=== PATIENT | female | born 1960 | race Caucasian/White ===

== ENCOUNTER → 2017-07-03 | Outpatient (CLI) | payer OTHER ==
[~2017-07-03] MED LIST: CIPR-255 PO; IPRA1AER2 INH; LORA10TA51 PO; LOSA50TA6 PO; NRN400 PO; OXYM0.0592 NAE; PANT1TAB3 PO; PRM/3 PO; SNG10 PO
[2017-07-03 16:57] LABS: BLOOD UREA NITROGEN 7 mg/dl (7-18); CALCIUM 9.2 mg/dl (8.5-10.1); CARBON DIOXIDE 30 mmol/L (21-32); CREATININE 0.82 mg/dl (0.60-1.20); GLUCOSE 92 mg/dl (70-99); POTASSIUM 4.1 mmol/L (3.5-5.1); SODIUM 140 mmol/L (136-145)
== END | disposition home or self-care (01) ==
LOC: C.LABPBG 12:57
PROVIDERS: ATTEND Physician Assistant
DX: I10 Essential (primary) hypertension (principal); R60.9 Edema, unspecified

== ENCOUNTER 2019-05-20 22:05 | Inpatient (IN) ==
[2019-05-20 22:46] LABS: Basophils # (auto) 0.02 K/uL (0-0.2); Basophils % (auto) 0.3 %; Eosinophils # (auto) 0.16 K/uL (0-0.5); Hematocrit (blood only) 44.3 % (37-47); Hemoglobin 15.5 g/dL (12.0-16.0); Immature Granulocytes # (auto) 0.01 K/uL (0.00-0.02); Immature Granulocytes % (auto) 0.1 %; Lymphocytes # (auto) 2.84 K/uL (1.2-3.4); Lymphocytes % (auto) 36.2 %; Mean Corpuscular Hemoglobin 32.7 pg (25-34); Mean Corpuscular Volume 93.5 fL (80-100); Mean Platelet Volume 10.4 fL (7.4-10.4); Monocytes # (auto) 0.81 K/uL (0.11-0.59); Monocytes % (auto) 10.3 %; Neutrophils # (auto) 4.01 K/uL (1.4-6.5); Neutrophils % (auto) 51.1 %; Platelet Count 278 K/uL (130-400); RDW Coefficient of Variation 13.4 % (11.5-14.5); RDW Standard Deviation 45.9 fL (36.4-46.3); Red Blood Count 4.74 M/uL (4.2-5.4); White Blood Count 7.85 K/uL (4.8-10.8)
--- NOTE | 2019-05-20 22:50 | CT Scan Report ---
HEAD CT NONCONTRAST CT DOSE: HISTORY: Stroke evaluation TECHNIQUE: Multiaxial CT images of the head were performed without the use of intravenous contrast. A utomated exposure control was utilized for this study. A dose lowering technique was utilized adheri ng to the principles of ALARA. Comparison: Head CTA 07/24/2018. Findings: The paranasal sinuses are clear. The right mastoid air cells are clear. Complete opacificat ion of the left mastoid air cells, unchanged. Prior left-sided craniotomy changes are noted with smal l focus of encephalomalacia within the left temporal lobe. No calvarial fractures. There is no mass, hematoma, midline shift. The ventricles are normal in size. A few small focal areas of encephalomalac ia within the right frontal and parietal lobes consistent with old infarcts. Small peripheral hypoden sity within the right posterior parietal lobe on image 18 consistent with an age-indeterminate infarc t. Impression: 1. Small focal peripheral hypodensity within the right posterior frontal lobe consistent with an age- indeterminate infarct. This could be further assessed with a follow-up brain MRI. 2. Postoperative changes and a few small old scattered infarcts are identified. ACT 112: Negative or not required by law. Electronically signed by: Micheal Lux M.D. 05/20/2019 10:49 PM
[2019-05-20 22:53] LABS: Partial Thromboplastin Time 27.2 Seconds (21.0-31.0); Prothrombin Time 10.2 Seconds (9.0-12.0)
[2019-05-20] MEDS ORDERED: CLOPIDOGREL BISULFATE 300 MG TAB PO STA (22:54)
--- NOTE | 2019-05-20 23:05 | CT Scan Report ---
HEAD & NECK CTA HISTORY: Stroke symptoms. Stroke evaluation TECHNIQUE: Multiaxial CT images of the head were performed following the intravenous administration o f contrast to evaluate the major cerebral vessels. Multiaxial CT images of the neck were also perform ed following the intravenous administration of contrast to evaluate the major cervical vessels. Maxim um intensity projection images were also obtained. A dose lowering technique was utilized adhering to the principles of ALARA. COMPARISON: Head CTA 07/24/2018. FINDINGS: Postoperative changes consistent with prior left sided craniotomy. Diminished perfusion and a small c aliber intracranial right internal carotid artery demonstrate up to 50% narrowing. Hypoplastic bilate ral P1 segments which are likely developmental and considered normal variants. No significant stenosi s, occlusion, or aneurysm within the bilateral ACAs, MCAs, or vocational school teacher. The basilar artery appears patent . The left internal carotid artery is also widely patent. The major dural venous sinuses are patent. Chronic left mastoid effusion is again noted. Focal erosion through the epitympanic roof measuring 1 cm. This also unchanged. The aortic arch and proximal great vessels are widely patent. Severely hypoplastic right vertebral artery which appears to terminate into the posterior inferior cerebellar artery. The bilateral common carotid and left internal carotid arteries are widely patent. Critical stenosis versus focal cut off at the origin of the right internal carotid artery. There is faint perfusion and approximately 80% s tenosis throughout the remaining right internal carotid artery. Therefore, this raises the possibilit y of a dissection within the right internal carotid artery. Multiple solid and groundglass nodules wi thin the lungs. Dominant nodules measure up to 3 mm. IMPRESSION: 1. Critical stenosis versus focal cut off at the origin of the right internal carotid artery. There i s faint perfusion and approximately 80% stenosis throughout the remaining right internal carotid jj ry. Therefore, this raises the possibility of a dissection within the right internal carotid artery. 2. No significant stenosis, occlusion, or aneurysm within the bilateral ACAs, MCAs, or vocational school teacher. 3. No change in the chronic left mastoid effusion. Focal erosion through the epitympanic roof measuri ng 1 suggesting the possibility of a cholesteatoma. This also unchanged and may account for the left- sided postcraniotomy changes. 4. Multiple solid and groundglass nodules within the lungs. This favors mild inflammatory/infectious change. Comparison to old studies or follow-up nonemergent chest CT is recommended for further evalua tion. The largest nodules measure 3 mm. ACT 112: Negative or not required by law. Electronically signed by: Micheal Lux M.D. 05/20/2019 11:03 PM
--- NOTE | 2019-05-20 23:11 | Emergency Department Note ---
History of Present Illness General Chief complaint: TIA Symptoms Stated complaint: @1955 SPEECH SLURRED, FACE NUMBNESS, LT ARM NUMB Time Seen by Provider: 05/20/19 22:17 Source: patient and family Mode of arrival: EMS History of Present Illness Provider complaint: Left-sided weakness Onset (ago): day(s) 3 Location: upper extremity and lower extremity Severity: severe Pain Consistency: + intermittent Quality: + other (Weakness) Associated symptoms: no chest pain, no cough, no fever/chills, no headaches, no nausea/vomiting and no shortness of breath This is a 58-year-old female with history of hypertension presenting with left- sided weakness and numbness. I did obtain history from the patient as well as her daughter over the telephone. Apparently 3 days ago the patient developed an episode of left arm weakness and numbness. It lasted a short time and resolved but since then she has had trouble with coordination of the left arm. Today at 1955 the patient suddenly developed expressive aphasia as well as numbness to her face and left arm. She also had weakness to the left arm and leg. This lasted about 5 minutes then went away. About an hour later she had similar symptoms and they did not resolve. She currently can speak normally. She denies any headache or head injury. She has had no fever, vomiting, cough or flulike symptoms. She has had no travel or recent sick contacts. She has never had a stroke before. She does state in the 1980s she had a brain tumor which was not cancer and it was removed at [facility]. Home Medications Home Medications Medication Instructions Recorded Confirmed Type albuterol sulfate 2.5 mg INHALATION .Q4-6HRS PRN 07/24/18 05/20/19 History albuterol sulfate [Ventolin HFA] 1 - 2 puff INHALATION .Q4-6HRS PRN 07/24/18 05/20/19 History ondansetron 4 mg disintegrating 4 mg TRANSLINGUAL TID PRN #15 tab 12/30/18 05/20/19 Rx tablet cetirizine 10 mg tablet 10 mg PO DAILY #30 tab 02/05/19 05/20/19 Rx hydrochlorothiazide 12.5 mg tablet 12.5 mg PO QAM #30 tab 02/05/19 05/20/19 Rx losartan 100 mg tablet 100 mg PO DAILY #30 tab 02/05/19 05/20/19 Rx pantoprazole 40 mg tablet,delayed 40 mg PO QAM #30 tab 02/05/19 05/20/19 Rx release Allergies Allergy/AdvReac Type Severity Reaction Status Date / Time Penicillins Allergy Intermediate HIVES--CAN Verified 05/20/19 23:56 TAKE CEPHALOSPORINS propoxyphene Allergy Intermediate HIVES Verified 05/20/19 23:57 Past Med/Surg History Medical History (Updated 05/21/19 @ 00:31 by Sunny Andrade MD) Brain tumor (benign) (Resolved) Hypertension Surgical History H/O craniotomy (Resolved) Social History Preferred Language: [place] Feels Safe at Home: Yes Smoking Status: Current every day smoker Review of Systems See HPI for pertinent positives & negatives. and A total of 10 systems reviewed and were otherwise negative Physical Exam Vital Signs Vital Signs - 24 hr 05/20/19 22:06 05/20/19 22:18 05/20/19 22:27 Temperature 36.8 C Temperature Source Oral Pulse Rate 111 H 112 H Pulse Rate [Right Finger] Pulse Rate from SpO2 Sensor 112 H Respiratory Rate 16 18 20 Respiratory Effort / Characteristics Non-Labored Spontaneous Respiratory Depth Normal Respiratory Pattern Regular Blood Pressure 183/81 H 199/89 H Blood Pressure [Right Arm] Blood Pressure Mean 115 135 Blood Pressure Mean [Right Arm] Blood Pressure Position Sitting Blood Pressure Position [Right Arm] Pulse Oximetry 97 96 97 Oxygen Delivery Method Room Air Room Air Room Air Sepsis Recent Fever Within 48 Hours No Sepsis Action Taken by Nursing No Action Required 05/20/19 22:47 05/20/19 23:06 05/20/19 23:26 Temperature Temperature Source Pulse Rate 96 H 94 H Pulse Rate [Right Finger] 99 H Pulse Rate from SpO2 Sensor 95 H Respiratory Rate 22 16 17 Respiratory Effort / Characteristics Non-Labored Spontaneous Respiratory Depth Normal Respiratory Pattern Regular Blood Pressure 179/81 H 170/87 H Blood Pressure [Right Arm] 160/100 H Blood Pressure Mean 139 112 Blood Pressure Mean [Right Arm] 120 Blood Pressure Position Blood Pressure Position [Right Arm] Lying Pulse Oximetry 98 98 97 Oxygen Delivery Method Room Air Sepsis Recent Fever Within 48 Hours Sepsis Action Taken by Nursing 05/20/19 23:30 05/21/19 00:00 05/21/19 00:30 Temperature Temperature Source Pulse Rate 93 H 94 H 88 Pulse Rate [Right Finger] Pulse Rate from SpO2 Sensor 94 H 93 H 88 Respiratory Rate 21 16 19 Respiratory Effort / Characteristics Respiratory Depth Respiratory Pattern Blood Pressure 156/84 H 138/70 132/83 Blood Pressure [Right Arm] Blood Pressure Mean 111 108 108 Blood Pressure Mean [Right Arm] Blood Pressure Position Blood Pressure Position [Right Arm] Pulse Oximetry 96 95 96 Oxygen Delivery Method Sepsis Recent Fever Within 48 Hours Sepsis Action Taken by Nursing Constitutional: Vital signs reviewed. Eyes: Pupils are equal round reactive to light. Conjunctiva are noninjected. ENT: Pharynx is clear without erythema or exudate. Mucous membranes are moist. Neck supple without meningeal signs. Respiratory: Clear to auscultation bilaterally. Breath sounds are equal bilaterally. Cardiovascular: Regular rate and rhythm. No rubs or gallops. GI: Soft, nondistended and nontender. Bowel sounds are present. Musculoskeletal: No peripheral edema. No lower extremity tenderness. Integumentary: No cyanosis. or jaundice. Neurologic: The patient is awake and alert. Cranial nerves II-XII are intact. Strength is 2 out of 5 in the left lower extremity and 3 out of 5 in the left upper extremity. 5 out of 5 on the right side. Sensation is intact to light touch all extremities. Normal speech. Left pronator drift. Psychiatric: Normal affect. Not anxious appearing. Course Consultations Consultation #1: Dr. Keenan of [place] [facility]. Reviewed CT and CT angios findings with her. She felt the patient could be admitted locally for MRI in the morning as well as carotid duplex. Recommended treatment with Plavix and aspirin. Did not recommend IV heparin or emergent transfer. Administered Medications Discontinued Medications Aspirin (Aspirin) 324 mg PO NOW STA Stop: 05/20/19 23:19 Last Admin: 05/20/19 23:27 Dose: 324 mg Documented by: [id number] Clopidogrel Bisulfate (Plavix) 300 mg PO NOW STA Stop: 05/20/19 22:55 Last Admin: 05/20/19 23:04 Dose: 300 mg Documented by: [id number] Critical Care Time Total Critical Care Time: 40 I have personally spent approximately 40 minutes of critical care time in the direct management of this patient. This includes bedside care, interpretation of diagnostic studies, and testing, discussion with consultants, patient, and family members, and other required patient management activities. These minutes are in excess of all separately billable procedures. Medical Decision Making Differential Diagnosis CVA, TIA, carotid artery disease, intracranial mass, intracranial hemorrhage Medical Records Attestation: I reviewed the patient's medical records. I did perform a limited focused review of portions of the patient's old chart on the electronic medical record. The patient has had no recent pertinent visits to this hospital. I did see her for headache in July of last year. Home Medications Current Medication List: was personally reviewed by me Laboratory Data Attestation: I reviewed the patient's lab results. Result diagrams: 05/20/19 22:32 05/20/19 22:32 Lab Results 05/20/19 05/20/19 05/20/19 Range/Units 22:23 22:32 22:32 WBC 7.85 (4.8-10.8) K/uL RBC 4.74 (4.2-5.4) M/uL Hgb 15.5 (12.0-16.0) g/dL Hct 44.3 (37-47) % MCV 93.5 (80-100) fL MCH 32.7 (25-34) pg MCHC 35.0 (32-36) g/dL RDW Std Deviation 45.9 (36.4-46.3) fL RDW Coeff of Tori 13.4 (11.5-14.5) % Plt Count 278 (130-400) K/uL MPV 10.4 (7.4-10.4) fL Immature Gran % (Auto) 0.1 % Neut % (Auto) 51.1 % Lymph % (Auto) 36.2 % Cuming % (Auto) 10.3 % Eos % (Auto) 2.0 % Baso % (Auto) 0.3 % Immature Gran # (Auto) 0.01 (0.00-0.02) K/uL Neut # (Auto) 4.01 (1.4-6.5) K/uL Lymph # (Auto) 2.84 (1.2-3.4) K/uL Cuming # (Auto) 0.81 H (0.11-0.59) K/uL Eos # (Auto) 0.16 (0-0.5) K/uL Baso # (Auto) 0.02 (0-0.2) K/uL PT 10.2 (9.0-12.0) Seconds INR 1.0 (0.9-1.1) APTT 27.2 (21.0-31.0) Seconds PTT Ratio 1.0 Sodium (136-145) mmol/L Potassium (3.5-5.1) mmol/L Chloride (98-107) mmol/L Carbon Dioxide (21-32) mmol/L Anion Gap (3-11) BUN (7-18) mg/dl Creatinine (0.6-1.2) mg/dl Est Cr Clr Drug Dosing ml/min Est GFR ( Amer) Est GFR (Non-Af Amer) BUN/Creatinine Ratio (10-20) Glucose (70-99) mg/dl POC Glucose 119 H (70-99) mg/dl Calcium (8.5-10.1) mg/dl Magnesium (1.8-2.4) mg/dl Total Bilirubin (0.2-1) mg/dl AST (15-37) U/L ALT (12-78) U/L Alkaline Phosphatase (45-117) U/L Troponin I (0-0.045) ng/ml Total Protein (6.4-8.2) gm/dl Albumin (3.4-5.0) gm/dl Globulin (2.5-4.0) gm/dl Albumin/Globulin Ratio (0.9-2) Blood Type Antibody Screen 05/20/19 05/20/19 Range/Units 22:32 22:52 WBC (4.8-10.8) K/uL RBC (4.2-5.4) M/uL Hgb (12.0-16.0) g/dL Hct (37-47) % MCV (80-100) fL MCH (25-34) pg MCHC (32-36) g/dL RDW Std Deviation (36.4-46.3) fL RDW Coeff of Tori (11.5-14.5) % Plt Count (130-400) K/uL MPV (7.4-10.4) fL Immature Gran % (Auto) % Neut % (Auto) % Lymph % (Auto) % Cuming % (Auto) % Eos % (Auto) % Baso % (Auto) % Immature Gran # (Auto) (0.00-0.02) K/uL Neut # (Auto) (1.4-6.5) K/uL Lymph # (Auto) (1.2-3.4) K/uL Cuming # (Auto) (0.11-0.59) K/uL Eos # (Auto) (0-0.5) K/uL Baso # (Auto) (0-0.2) K/uL PT (9.0-12.0) Seconds INR (0.9-1.1) APTT (21.0-31.0) Seconds PTT Ratio Sodium 136 (136-145) mmol/L Potassium 3.5 (3.5-5.1) mmol/L Chloride 107 (98-107) mmol/L Carbon Dioxide 27 (21-32) mmol/L Anion Gap 2.0 L (3-11) BUN 12 (7-18) mg/dl Creatinine 0.82 (0.6-1.2) mg/dl Est Cr Clr Drug Dosing 69.1 ml/min Est GFR ( Amer) 90.8 Est GFR (Non-Af Amer) 78.3 BUN/Creatinine Ratio 14.0 (10-20) Glucose 114 H (70-99) mg/dl POC Glucose (70-99) mg/dl Calcium 9.2 (8.5-10.1) mg/dl Magnesium 1.8 (1.8-2.4) mg/dl Total Bilirubin 0.2 (0.2-1) mg/dl AST 13 L (15-37) U/L ALT 28 (12-78) U/L Alkaline Phosphatase 113 (45-117) U/L Troponin I < 0.015 (0-0.045) ng/ml Total Protein 7.4 (6.4-8.2) gm/dl Albumin 3.6 (3.4-5.0) gm/dl Globulin 3.8 (2.5-4.0) gm/dl Albumin/Globulin Ratio 0.9 (0.9-2) Blood Type A Positive Antibody Screen NEGATIVE Imaging Data Radiologist's Impression: HEAD & NECK CTA HISTORY: Stroke symptoms. Stroke evaluation TECHNIQUE: Multiaxial CT images of the head were performed following the intravenous administration of contrast to evaluate the major cerebral vessels. Multiaxial CT images of the neck were also performed following the intravenous administration of contrast to evaluate the major cervical vessels. Maximum intensity projection images were also obtained. A dose lowering technique was utilized adhering to the principles of ALARA. COMPARISON: Head CTA 07/24/2018. FINDINGS: Postoperative changes consistent with prior left sided craniotomy. Diminished perfusion and a small caliber intracranial right internal carotid artery demonstrate up to 50% narrowing. Hypoplastic bilateral P1 segments which are likely developmental and considered normal variants. No significant stenosis, occlusion, or aneurysm within the bilateral ACAs, MCAs, or completion engineer. The basilar artery appears patent. The left internal carotid artery is also widely patent. The major dural venous sinuses are patent. Chronic left mastoid effusion is again noted. Focal erosion through the epitympanic roof measuring 1 cm. This also unchanged. The aortic arch and proximal great vessels are widely patent. Severely hypoplastic right vertebral artery which appears to terminate into the posterior inferior cerebellar artery. The bilateral common carotid and left internal carotid arteries are widely patent. Critical stenosis versus focal cut off at the origin of the right internal carotid artery. There is faint perfusion and approximately 80% stenosis throughout the remaining right internal carotid a rtery. Therefore, this raises the possibility of a dissection within the right internal carotid artery. Multiple solid and groundglass nodules within the lungs. Dominant nodules measure up to 3 mm. IMPRESSION: 1. Critical stenosis versus focal cut off at the origin of the right internal carotid artery. There is faint perfusion and approximately 80% stenosis throughout the remaining right internal carotid artery. Therefore, this raises the possibility of a dissection within the right internal carotid artery. 2. No significant stenosis, occlusion, or aneurysm within the bilateral ACAs, MCAs, or completion engineer. 3. No change in the chronic left mastoid effusion. Focal erosion through the epitympanic roof measuring 1 suggesting the possibility of a cholesteatoma. This also unchanged and may account for the left-sided postcraniotomy changes. 4. Multiple solid and groundglass nodules within the lungs. This favors mild inflammatory/infectious change. Comparison to old studies or follow-up nonemergent chest CT is recommended for further evaluation. The largest nodules measure 3 mm. Electronically signed by: Micheal Lux M.D. 05/20/2019 11:[address] CT DOSE: HISTORY: Stroke evaluation TECHNIQUE: Multiaxial CT images of the head were performed without the use of intravenous contrast. Automated exposure control was utilized for this study. A dose lowering technique was utilized adhering to the principles of ALARA. Comparison: Head CTA 07/24/2018. Findings: The paranasal sinuses are clear. The right mastoid air cells are clear. Complete opacification of the left mastoid air cells, unchanged. Prior left-sided craniotomy changes are noted with small focus of encephalomalacia within the left temporal lobe. No calvarial fractures. There is no mass, hematoma, midline shift. The ventricles are normal in size. A few small focal areas of encephalomalacia within the right frontal and parietal lobes consistent with old infarcts. Small peripheral hypodensity within the right posterior parietal lobe on image 18 consistent with an age-indeterminate infarct. Impression: 1. Small focal peripheral hypodensity within the right posterior frontal lobe consistent with an age-indeterminate infarct. This could be further assessed with a follow-up brain MRI. 2. Postoperative changes and a few small old scattered infarcts are identified. ACT 112: Negative or not required by law. Electronically signed by: Micheal Lux M.D. 05/20/2019 10:49 PM Blood Pressure Blood Pressure Findings: Elevated blood pressure Blood Pressure Disposition: Referred to patients primary care provider MDM Narrative I did evaluate the patient as noted above. The patient was immediately brought to the trauma bay B1. The patient is complaining of acute neurologic symptoms that were initially reported as starting at 7:55 PM tonight. I therefore called a stroke alert. I did obtain further history from the patient as well as her daughter over the telephone. Apparently her symptoms started 3 days ago. She initially told me that her weakness was completely gone and that her symptoms resolved but upon further questioning she stated that while her weakness improved she had continued incoordination of the left arm since her symptoms started 3 days ago. She is therefore not an IV TPA candidate. She also has a history of a resected brain tumor in the 1980s. I could not find further information about this on the [employer] system. She stated that the tumor was noncancerous and had no further information. IV access was established. I did order a stat CT of the head and CTA of the head and neck. I did review the images myself as well as the radiology report as described above. She does have an age-indeterminate right frontal infarct. She also has what appears to be a carotid dissection. I did talk to Dr. Keenan of [place] [facility]. She did not feel any acute intervention was necessary. She recommended aspirin and Plavix for the dissection and stroke. She recommended that we obtain a carotid duplex in the morning as well as MRI. She did not feel the patient needed to be transferred. The patient was placed on a continuous cardiac catheterization technologist. Cardiac monitoring: Indication: Hypertension and stroke symptoms Rate and rhythm: Normal sinus rhythm with a rate of 94. No dysrhythmia or atrial fibrillation. I did order and personally review the patient's 12-lead EKG as described above. She has normal sinus rhythm without any acute ischemia. I did order and review the patient's blood work as noted in the electronic medical record. CBC is unremarkable without leukocytosis or anemia. Electrolytes are unremarkable as well. I did reassess the patient multiple times. Her blood pressure improved spontaneously down to 138/70. Her symptoms also improved significantly with significant improvement of her strength in the left upper and lower extremity. I did discuss the test results with the patient as well as the patient's daughter over the telephone. I did discuss the case with the hospitalist and manager rn case. I also spoke to Dr. Knox of neurology who felt that the patient could be admitted to the hospital here and recommended treatment with aspirin only. I did relay the recommendations to the hospitalist team. Impression & Plan Acute cerebrovascular accident, Internal carotid artery dissection Discharge Plan Visit Data Chief Complaint: TIA Symptoms Stated Complaint: @195 SPEECH SLURRED, FACE NUMBNESS, LT ARM NUMB ED Provider: Sunny Andrade Discharge Problem: Acute cerebrovascular accident, Internal carotid artery dissection Patient Disposition: Being Evaluated by Hospitalist Forms Stand Alone Forms: My [facility] Prescriptions Prescriptions: No Action ondansetron 4 mg tablet,disintegrating 4 mg translingual TID PRN (Reason: Nausea) Qty: 15 RF: 2 cetirizine 10 mg tablet 10 mg PO DAILY Qty: 30 RF: 5 hydrochlorothiazide 12.5 mg tablet 12.5 mg PO QAM Qty: 30 RF: 5 losartan 100 mg tablet 100 mg PO DAILY Qty: 30 RF: 5 pantoprazole 40 mg tablet,delayed release (DR/EC) 40 mg PO QAM Qty: 30 RF: 5 albuterol sulfate 2.5 mg /3 mL (0.083 %) solution for nebulization 2.5 mg inhalation .Q4-6HRS PRN (Reason: Shortness Of Breath Or Wheezing) RF: 0 albuterol sulfate [Ventolin HFA] 90 mcg/actuation HFA aerosol inhaler 1 - 2 puff inhalation .Q4-6HRS PRN (Reason: Shortness Of Breath Or Wheezing) RF: 0 Referrals Referrals: Ady Mix, [Primary Care Provider] -
[2019-05-20] MEDS ORDERED: ASPIRIN CHEW 324 MG PO STA (23:18)
[2019-05-20 23:25] LABS: Alanine Aminotransferase 28 U/L (12-78); Albumin Globulin Ratio 0.9 (0.9-2); Albumin Level 3.6 gm/dl (3.4-5.0); Alkaline Phosphatase 113 U/L (45-117); Aspartate Aminotransferase 13 U/L (15-37); Bilirubin,Total 0.2 mg/dl (0.2-1); Blood Urea Nitrogen 12 mg/dl (7-18); Calcium 9.2 mg/dl (8.5-10.1); Carbon Dioxide 27 mmol/L (21-32); Chloride 107 mmol/L (98-107); Creatinine Clr Calc Pharmacy 69.1 ml/min; Est GFR (African American) 90.8; Est GFR (Non-African American) 78.3; Globulin 3.8 gm/dl (2.5-4.0); Glucose 114 mg/dl (70-99); Magnesium 1.8 mg/dl (1.8-2.4); Potassium 3.5 mmol/L (3.5-5.1); Sodium 136 mmol/L (136-145); Total Protein 7.4 gm/dl (6.4-8.2); Troponin I < 0.015 ng/ml (0-0.045)
--- NOTE | 2019-05-21 01:39 | History & Physical Report ---
Date of Service May 21, 2019 Assessment & Plan (1) Acute cerebrovascular accident: 58 yo F PMHx HTN, extensive smoking history, IBS, GERD admitted for continued evaluation and treatment of carotid stenosis with potential acute CVA and carotid artery dissection. Carotid artery stenosis with possible acute CVA: - CT head showed "small focal peripheral hypodensity within the right posterior frontal lobe consistent with an age-indeterminate infarct. Critical stenosis versus focal cut off at the origin of the right internal carotid artery." - Upon review with Dr. Knox she believes there are possibly several small areas of old infarct that would not necessarily explain her acute symptoms. Made suggestions as follows and Neuro consult placed: - MRI brain w/ and w/o ordered to further evaluate for acute stroke. - Infectious workup started with CBC which showed no leukocytosis or left shift. UCx pending. Pt without clear signs of or source of infection. - UDS ordered to r/o drug causes of her neurologic symptoms. - q2h neuro checks, NPO including medications with speech eval in AM, PT/OT evals, cardiac monitoring. - Hgb A1c and lipid profile with AM labs. - Permissive HTN with goal MAP >65. - Heparin high risk protocol started, no bolus, no TPA. ? Carotid artery dissection: - CTA neck performed in ED showed: - "There is faint perfusion and approximately 80% stenosis throughout the remaining right internal carotid artery. Therefore, this raises the possibility of a dissection within the right internal carotid artery." - Spoke with Dr. Knox Neurologist contract technician who reviewed images and does not think there is a dissection on imaging but rather just a chronic stenosis. - Will confirm presence of dissection with MRA neck w/ and w/out contrast. - Consult Vascular Surgery placed for consideration of thrombectomy vs. endarterectomy if no dissection present. HTN: - 170s-190s/80s-100s. This self-resolved with last recorded BP 144/85 at 0130 this AM. - Allow for permissive HTN at this time with goal MAP >65. Smoking Hx: - Pt reports that she smokes 1/2 PPD at this time, has been smoking since age 13. - At peak of smoking was smoking up to 3PPD. - Will need smoking cessation education throughout inpatient stay and will need follow up with PCP for help with quitting strategies. GERD: - Holding all oral medications at this time. Pt normally on pantoprazole 40mg daily. Code Status: FULL CODE FEN/GI: NPO until Speech Evaluation in AM. DVT ppx: Heparin high risk protocol started. Dispo: Admit PCU/tele for monitoring of neurological symptoms, continued evaluation by primary team, neurology, vascular surgery this admission with expected time admitted >48 hours. (2) Hypertension: (3) GERD (gastroesophageal reflux disease): (4) Carotid artery stenosis with cerebral infarction: (5) Internal carotid artery dissection: History of Present Illness Chief Complaint: expressive aphasia, L UE/LE weakness Primary Care Provider: Ady Mix, DO 58 yo F PMHx HTN, extensive smoking history, IBS, GERD presents for acute complaint of intermittent expressive aphasia and continued upper and lower left limb weakness. Initial history on arrival to ED obtained via patient's daughter and patient herself, who, at the time of interview, was without expressive aphasia at that time. Patient was evaluated in the ED by Dr. Andrade for expressive aphasia and left arm/leg weakness which began at 1954 on 05/19. Pt reports that 3 days ago she had a transient eposide of Larm numbness and weakness that went away spontaneously after a few minutes to an hour. Today at 1954 she started to experience difficulty speaking, along with L sided facial numbness, and L arm/leg numbness and weakness that persisted prompting her arrival to the ED. In the ED she was evaluated with a CT head, and CTA head and neck which showed small focal peripheral hypodensity within the right posterior frontal lobe consistent with an age-indeterminate infarct, as well as critical stenosis of the right internal carotid artery with possibility of a R ICA dissection. Dr. Keenan from [place] was spoken to by Dr. Andrade who suggested no urgent need for transfer at this time and to defer to in-house Neurology. Inpatient service consulted for admission. On my interview patient was alert and oriented and did not have difficulty with speaking. Denied fevers, chills, SOB, CP, headache, dizziness, dysarthria, dysphagia, abdominal pain, nausea,vomiting, diarrhea, constipation, urinary Sx. Reported some "pins and needles" sensations in her L arm and leg as well as some subjective sense of weakness of those same limbs. Allergies Allergy/AdvReac Type Severity Reaction Status Date / Time Penicillins Allergy Intermediate HIVES--CAN Verified 05/20/19 23:56 TAKE CEPHALOSPORINS propoxyphene Allergy Intermediate HIVES Verified 05/20/19 23:57 Home Medications Home Medications Medication Instructions Recorded Confirmed Type albuterol sulfate 2.5 mg INHALATION .Q4-6HRS PRN 07/24/18 05/20/19 History albuterol sulfate [Ventolin HFA] 1 - 2 puff INHALATION .Q4-6HRS PRN 07/24/18 05/20/19 History ondansetron 4 mg disintegrating 4 mg TRANSLINGUAL TID PRN #15 tab 12/30/18 05/20/19 Rx tablet cetirizine 10 mg tablet 10 mg PO DAILY #30 tab 02/05/19 05/20/19 Rx hydrochlorothiazide 12.5 mg tablet 12.5 mg PO QAM #30 tab 02/05/19 05/20/19 Rx losartan 100 mg tablet 100 mg PO DAILY #30 tab 02/05/19 05/20/19 Rx pantoprazole 40 mg tablet,delayed 40 mg PO QAM #30 tab 02/05/19 05/20/19 Rx release Past Med/Surg History Medical History Brain tumor (benign) (Resolved) Hypertension Surgical History H/O craniotomy (Resolved) Social History Preferred Language: Urdu Communication Ability: Effective 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 Beliefs That Will Affect Care: None Current Living Situation: Alone Feels Safe at Home: Yes Smoking Status: Current every day smoker Tobacco Type: cigarettes ; Age Started Using Tobacco: 13 ; Cigarettes Per Day: 10 ; Tobacco Cessation Education Requested by Patient: No Hx Alcohol Use: No Hx Substance Use: No Review of Systems Constitutional: + weakness; no fever and no chills Eyes: no blind spots and no diplopia Respiratory: no cough, no dyspnea and no wheezing Cardiovascular: no chest pain, no palpitations and no edema Gastrointestinal: no abdominal pain, no nausea, no vomiting, no constipation and no diarrhea/loose stools Genitourinary: no dysuria, no urinary frequency, no urinary urgency and no hematuria Musculoskeletal: + muscle weakness (L arm/leg) Neurologic: no dizziness, no headache(s) and no confusion earlier today report of expressive aphasia, L sided facial numbness Physical Exam Constitutional: WD/WN, vitals as above Eyes: PERRL, conjunctivae normal, anicteric sclerae ENMT: external ear and nose normal, oropharynx normal Neck: trachea midline, no thyromegaly Respiratory: normal respiratory effort, lungs clear to auscultation Cardiovascular: RRR, no murmur, no edema Gastrointestinal (Abdomen): normal bowel sounds, soft, nontender, no hepatosplenomegaly Musculoskeletal: Extremities: no cyanosis and no clubbing strength 5/5 RUE and RLE. strength 4/5 LUE and LLE. Skin: no rashes, warm and dry Neurologic: PERRL, EOMI, accommodation nl, no face palsy, no dysarthria CN's II-XI intact bilaterally Psychiatric: A+Ox3, euthymic affect Lymphatic: no cervical or axillary lymphadenopathy Results & Data Results & Data ([facility]) Vital Signs (Past 12 Hours) Vital Signs Temp Pulse Pulse Resp BP BP Pulse Ox 05/21/19 01:00 96 H 20 154/83 H 95 05/21/19 00:30 88 19 132/83 96 05/21/19 00:00 94 H 16 138/70 95 05/20/19 23:30 93 H 21 156/84 H 96 05/20/19 23:26 94 H 17 170/87 H 97 05/20/19 23:06 99 H 16 160/100 H 98 05/20/19 22:47 96 H 22 179/81 H 98 05/20/19 22:27 20 199/89 H 97 05/20/19 22:18 112 H 18 96 05/20/19 22:06 36.8 C 111 H 16 183/81 H 97 Laboratory Results Laboratory Results - last 24 hr 05/20/19 05/20/19 05/20/19 22:23 22:32 22:32 WBC 7.85 RBC 4.74 Hgb 15.5 Hct 44.3 MCV 93.5 MCH 32.7 MCHC 35.0 RDW Std Deviation 45.9 RDW Coeff of Tori 13.4 Plt Count 278 MPV 10.4 Immature Gran % (Auto) 0.1 Neut % (Auto) 51.1 Lymph % (Auto) 36.2 [place] % (Auto) 10.3 Eos % (Auto) 2.0 Baso % (Auto) 0.3 Immature Gran # (Auto) 0.01 Neut # (Auto) 4.01 Lymph # (Auto) 2.84 [place] # (Auto) 0.81 H Eos # (Auto) 0.16 Baso # (Auto) 0.02 PT 10.2 INR 1.0 APTT 27.2 PTT Ratio 1.0 Sodium Potassium Chloride Carbon Dioxide Anion Gap BUN Creatinine Est Cr Clr Drug Dosing Est GFR ( Amer) Est GFR (Non-Af Amer) BUN/Creatinine Ratio Glucose POC Glucose 119 H Calcium Magnesium Total Bilirubin AST ALT Alkaline Phosphatase Troponin I Total Protein Albumin Globulin Albumin/Globulin Ratio Blood Type Antibody Screen 05/20/19 05/20/19 22:32 22:52 WBC RBC Hgb Hct MCV MCH MCHC RDW Std Deviation RDW Coeff of Tori Plt Count MPV Immature Gran % (Auto) Neut % (Auto) Lymph % (Auto) [place] % (Auto) Eos % (Auto) Baso % (Auto) Immature Gran # (Auto) Neut # (Auto) Lymph # (Auto) [place] # (Auto) Eos # (Auto) Baso # (Auto) PT INR APTT PTT Ratio Sodium 136 Potassium 3.5 Chloride 107 Carbon Dioxide 27 Anion Gap 2.0 L BUN 12 Creatinine 0.82 Est Cr Clr Drug Dosing 69.1 Est GFR ( Amer) 90.8 Est GFR (Non-Af Amer) 78.3 BUN/Creatinine Ratio 14.0 Glucose 114 H POC Glucose Calcium 9.2 Magnesium 1.8 Total Bilirubin 0.2 AST 13 L ALT 28 Alkaline Phosphatase 113 Troponin I < 0.015 Total Protein 7.4 Albumin 3.6 Globulin 3.8 Albumin/Globulin Ratio 0.9 Blood Type A Positive Antibody Screen NEGATIVE Supervising Physician Co-Signing Physician Notes Attending addendum: I have physically seen this patient, have supervised the medical residents activities, and agree with the H&P unless as otherwise noted. Assessment and Plan: Acute CVA/right posterior frontal lobe/age-indeterminate infarct/critical right ICA stenosis versus carotid artery dissection- Results as noted on CT of head, and CTA of head and neck. Order MRI brain with and without contrast, MRA of neck with and without contrast. Patient initially presented as a stroke alert, with initial recommendations from stroke neurology at [facility], and case also discussed with Dr. Lisette, local neurology. Stroke without TPA order set protocol. Further management based on results of above testing. Permissive hypertension overnight. Tobacco cessation counseling. Remainder of orders and notations as noted. Resident Activity Tracking Resident Involvement: Resident Care Provided Care Provided: Adult Hospital Medicine
[2019-05-21] MEDS ORDERED: GADOBUTROL 30ML VIAL IV PRN (03:32)
[2019-05-21] MEDS ORDERED: PHARMACIST DISCHARGE MED REC CONSULT PRN (03:52)
[2019-05-21] MEDS: Heparin IV Standard *NO* Bolus IV SCH ×6 (04:53→19:38)
[2019-05-21] MEDS: HEPARIN SODIUM/DEXTROSE 25,000 UNITS/500 ML BAG IV SCH (04:53)
[2019-05-21 05:28] LABS: Basophils # (auto) 0.02 K/uL (0-0.2); Basophils % (auto) 0.3 %; Eosinophils # (auto) 0.15 K/uL (0-0.5); Eosinophils % (auto) 1.9 %; Hematocrit (blood only) 41.2 % (37-47); Hemoglobin 14.1 g/dL (12.0-16.0); Immature Granulocytes # (auto) 0.02 K/uL (0.00-0.02); Immature Granulocytes % (auto) 0.3 %; Lymphocytes # (auto) 3.35 K/uL (1.2-3.4); Lymphocytes % (auto) 43.1 %; Mean Corpuscular Hemoglobin 31.9 pg (25-34); Mean Corpuscular Hgb Conc 34.2 g/dL (32-36); Mean Corpuscular Volume 93.2 fL (80-100); Mean Platelet Volume 10.1 fL (7.4-10.4); Monocytes # (auto) 0.58 K/uL (0.11-0.59); Monocytes % (auto) 7.5 %; Neutrophils # (auto) 3.66 K/uL (1.4-6.5); Neutrophils % (auto) 46.9 %; Platelet Count 259 K/uL (130-400); RDW Coefficient of Variation 13.4 % (11.5-14.5); Red Blood Count 4.42 M/uL (4.2-5.4); White Blood Count 7.78 K/uL (4.8-10.8)
[2019-05-21 06:02] LABS: BUN Creatinine Ratio 17.7 (10-20); Calcium 8.7 mg/dl (8.5-10.1); Creatinine Clr Calc Pharmacy 89.5 ml/min; Est GFR (African American) 113.2; Est GFR (Non-African American) 97.7; Potassium 3.3 mmol/L (3.5-5.1)
[2019-05-21 06:18] LABS: Estimated Average Glucose 114 mg/dl; Hemoglobin A1C 5.6 % (4.5-5.6)
[2019-05-21] MEDS: POTASSIUM CHLORIDE / WTR 10 MEQ/100 ML PLCT IV SCH ×3 (06:30→10:41)
--- NOTE | 2019-05-21 07:02 | Magnetic Resonance Report ---
MRI OF THE BRAIN WITHOUT AND WITH IV CONTRAST CLINICAL HISTORY: Strokelike symptoms. Left arm heaviness. Facial numbness. Difficulty talking. COMPARISON STUDY: CT scan of the head dated 05/20/2019 TECHNIQUE: MRI of the brain was performed from the vertex to the skull base utilizing various T1 and T2 weighted sequences. Following the IV administration of 8.5 mL of Gadavist contrast, additional enh anced images were obtained. FINDINGS: Sagittal T1, axial diffusion, proton density and T2 weighted axial, coronal FLAIR, and pre and post a xial T1-weighted images were acquired. These were supplemented with post gadolinium coronal T1 weight ed images. No intra or extra-axial mass lesions are visualized. There are multiple foci of restricted water diffusion involving the right frontal, parietal, and occi pital lobes. There is no evidence of ventricular dilatation. Proton density T2-weighted and FLAIR images reveal scattered foci of increased T2 signal within the w derick matter, likely on a small vessel basis. There are postsurgical changes of a left temporal cranio davonte. There is left temporal lobe encephalomalacia. There are no abnormal flow voids. There is a 4 mm focus of enhancement within the right parietal lobe, likely post infarct related. The re is minimal increased T1 gyriform signal within the right parietal lobe, likely related to a subacu te infarct. There are bilateral mastoid effusions left greater than right. IMPRESSION: 1. Scattered foci of restricted water diffusion involving the right frontal, parietal, occipital lobe s consistent with acute/subacute infarcts 2. Minimal gyriform increased T1 signal within the right parietal lobe likely related to subacute inf arct 3. 4 mm focus of enhancement within the right parietal lobe, likely secondary to a subacute infarct 4. Postcraniotomy changes on the left with left temporal lobe encephalomalacia 5. Bilateral mastoid effusions left greater than right. ACT 112: Negative or not required by law. Electronically signed by: Emerson Kim M.D. 05/21/2019 7:01 AM
--- NOTE | 2019-05-21 07:33 | Magnetic Resonance Report ---
MR angio neck wo/w con CLINICAL HISTORY: 58 years-old Female presenting with left arm heaviness, facial numbness, difficulty speaking, no history of stroke. TECHNIQUE: MR angiography of the neck was performed before and after the administration of intravenou s contrast. 3-D volumetric and/or maximum intensity projection (MIP) images were subsequently reconst ructed for review. IV contrast: 8.5 mL of Gadavist. Stenosis measurements were based on NASCET-like c riteria (distal lumen diameter as the denominator for stenosis measurement). COMPARISON: CTA neck from 05/20/2019. FINDINGS: Localizer images: Unremarkable. Aortic arch: Atherosclerosis of the three-vessel aortic arch. Innominate artery: Patent. Right subclavian artery: Patent. Right common carotid artery: Patent. Right internal and external carotid arteries: Right carotid bifurcation presumably with extensive ath erosclerotic plaque resulting in occlusion of the origin of the right internal carotid artery versus critical stenosis. The right internal carotid artery is patent. Approximately 1.2 cm beyond the origi n with moderate stenosis throughout the remaining length approximately 75%. External carotid artery a nd branches patent. Left common carotid artery: Patent. Left internal and external carotid arteries: Left carotid bifurcation patent. Left internal and exter nal carotid arteries widely patent. Left subclavian artery: Patent. Vertebral arteries: Left dominant vertebral artery. Origins and courses of the bilateral vertebral ar teries patent. Other: Limited intracranial evaluation within normal limits. Soft tissues of the neck normal allowing for the phase of contrast. IMPRESSION: 1. Occlusion or critical stenosis of the origin and proximal 1.2 cm of the right internal carotid ar betty. Reconstitution of flow beyond this with diffusely stenotic lumen with approximately 75% stenosi s. As mentioned on CTA neck, this appearance could be seen in the setting of dissection. An arteritis is considered less likely. ACT 112: Negative or not required by law. Electronically signed by: Yuval Gasca M.D. 05/21/2019 7:32 AM
--- NOTE | 2019-05-21 10:04 | XCELERA ---
[id number] \\[id number]
[2019-05-21] MEDS ORDERED: POTASSIUM CHLORIDE 20 MEQ TABCR PO STA (10:23)
[2019-05-21 11:24] LABS: Partial Thromboplastin Ratio 2.2
[2019-05-21 11:47] LABS: Partial Thromboplastin Time 62.4 Seconds (21.0-31.0)
[2019-05-21] MEDS: ATORVASTATIN 40 MG TAB PO SCH (11:56)
--- NOTE | 2019-05-21 12:06 | Consultation ---
Date of Consultation May 21, 2019 Assessment & Plan (1) Carotid artery stenosis with cerebral infarction: I reviewed the CTA and MRA of the neck and brain. At this point she has a large plaque of the right internal carotid artery causing a near occlusive lesion. The internal carotid artery above this level is small throughout its entire course. I do not think this patient would benefit from an endarterectomy due to the size of the reconstituted internal carotid artery on the right. I would treat her conservatively with antiplatelets at this point. (2) Claudication of both lower extremities: She does have severe claudication of the lower extremities. I did order noninvasive testing of the lower extremities to evaluate the extent of the her disease. Being that its claudication any intervention will be put off till after the pandemic is completed. If she should worsen and she reaches a point that her limb is in jeopardy we will go ahead and intervene. Further treatment at this point is will be determined by the ultrasound of the lower extremities. Thank you very much for letting us participate in the care of this patient. History of Present Illness Reason for Consultation: Cerebrovascular accident with severe right carotid artery stenosis versus occlusion. Attending Physician: Larry Correa, History of Present Illness This is a 58-year-old female with a history of COPD, tobacco use, hypertension, and claudication. She was admitted at this point with a diagnosis cerebrovascular accident. She claims that she had intermittent aphasia with a left upper and lower extremity weakness. This was documented with her daughter. She claims that the arm and leg are near normal and her speech has recovered. This is the first time this has occurred. She has no history of arrhythmias. She does have a history of severe claudication of both lower extremities. She denies any ulcerations or discoloration of either foot at this time. He does claim that occasionally her feet get discolored but recover shortly after. She denies any rest pain of her feet. Allergies Allergy/AdvReac Type Severity Reaction Status Date / Time Penicillins Allergy Intermediate HIVES--CAN Verified 05/20/19 23:56 TAKE CEPHALOSPORINS propoxyphene Allergy Intermediate HIVES Verified 05/20/19 23:57 Home Medications Home Medications Medication Instructions Recorded Confirmed Type albuterol sulfate 2.5 mg INHALATION .Q4-6HRS PRN 07/24/18 05/20/19 History albuterol sulfate [Ventolin HFA] 1 - 2 puff INHALATION .Q4-6HRS PRN 07/24/18 05/20/19 History ondansetron 4 mg disintegrating 4 mg TRANSLINGUAL TID PRN #15 tab 12/30/18 05/20/19 Rx tablet cetirizine 10 mg tablet 10 mg PO DAILY #30 tab 02/05/19 05/20/19 Rx hydrochlorothiazide 12.5 mg tablet 12.5 mg PO QAM #30 tab 02/05/19 05/20/19 Rx losartan 100 mg tablet 100 mg PO DAILY #30 tab 02/05/19 05/20/19 Rx pantoprazole 40 mg tablet,delayed 40 mg PO QAM #30 tab 02/05/19 05/20/19 Rx release Patient History Medical History Brain tumor (benign) (Resolved) Hypertension Surgical History H/O craniotomy (Resolved) Social History Preferred Language: [place] Communication Ability: Effective Sampler Ovens Required: No Beliefs That Will Affect Care: None Current Living Situation: Alone Feels Safe at Home: Yes Smoking Status: Current every day smoker Tobacco Type: cigarettes ; Age Started Using Tobacco: 13 ; Cigarettes Per Day: 10 ; Tobacco Cessation Education Requested by Patient: No Hx Alcohol Use: No Hx Substance Use: No Review of Systems Review of Systems: All systems reviewed & are unremarkable except as noted in HPI & below Physical Exam Constitutional: WD/WN, vitals as above Neck: trachea midline Respiratory: normal respiratory effort; no respiratory distress Auscultation: lungs clear to auscultation bilaterally Cardiovascular: Rate/Rhythm: regular rate and regular rhythm Heart Sounds: normal S1 and normal S2 Vessels: femoral pulses present (Both are slightly decreased.), posterior tibial pulses present (I cannot palpate posterior tibial pulses.), dorsalis pedis pulses present (Weakly palpable) and radial pulses present Extremities: + abnormal capillary refill Gastrointestinal (Abdomen): Inspection/Auscultation: abdomen normal to inspection Percussion/Palpation: abdomen soft; abdomen nontender Musculoskeletal: Extremities: extremities normal to inspection and + abnormal strength (Slightly weak in the left upper and lower extremities.) Skin: no rashes, warm and dry Neurologic: CN's II-XI intact bilaterally and awake Speech / Cognition: normal speech Psychiatric: Orientation: alert and oriented x 3 Results & Data Vital Signs (Past 12 Hours) Vital Signs Temp Pulse Pulse Resp BP BP Pulse Ox 05/21/19 11:06 36.4 C L 94 H 18 145/83 H 97 05/21/19 08:15 78 05/21/19 07:40 36.5 C 86 19 145/76 H 96 05/21/19 02:00 81 14 146/87 H 96 05/21/19 01:30 91 H 14 144/85 H 96 05/21/19 01:00 96 H 20 154/83 H 95 05/21/19 00:30 88 19 132/83 96 05/21/19 00:00 94 H 16 138/70 95
--- NOTE | 2019-05-21 13:01 | Electrocardiogram Report ---
Test Reason : Blood Pressure : / mmHG Vent. Rate : 110 BPM Atrial Rate : 110 BPM P-R Int : 164 ms QRS Dur : 074 ms QT Int : 334 ms P-R-T Axes : 051 060 056 degrees QTc Int : 452 ms Sinus tachycardia Otherwise normal ECG When compared with ECG of 23-NOV-2004 16:20, No significant change was found Confirmed by Abrahan Mcnamara ([id number]) on 05/21/2019 1:00:39 PM Referred By: REFERRED SELF Confirmed By:Abrahan Mcnamara
--- NOTE | 2019-05-21 13:06 | Electrocardiogram Report ---
Test Reason : Blood Pressure : / mmHG Vent. Rate : 082 BPM Atrial Rate : 082 BPM P-R Int : 172 ms QRS Dur : 068 ms QT Int : 384 ms P-R-T Axes : 066 075 075 degrees QTc Int : 448 ms Normal sinus rhythm Normal ECG When compared with ECG of 20-MAY-2019 22:16, (unconfirmed) No significant change was found Confirmed by Abrahan Mcnamara ([id number]) on 05/21/2019 1:05:45 PM Referred By: REFERRED SELF Confirmed By:Abrahan Mcnamara
--- NOTE | 2019-05-21 16:35 | Ultrasound Report ---
US arterial duplex LE BI CLINICAL HISTORY: severe claudication pain. Edema. COMPARISON STUDY: None FINDINGS: Real-time as well as Doppler evaluation of the arterial structures of the lower legs was p erformed. Ankle-brachial indices of the right leg are 0.63 involving posterior tibial and 0.46 involving dorsal is pedis. On the left, posterior tibial ankle brachial index is 0.51 with dorsalis pedis is 0.50 Proximal femoral waveforms are unremarkable. There is occlusion under Complete occlusion of the right proximal superficial femoral artery. There is partial collateral [place] nstitution at the distal superficial femoral artery. Dampened waveforms involving the lower leg on th e right although all 3 vessels appear to be patent. Similar findings are seen on the left although monophasic waveforms are identified throughout with no evidence for complete occlusion. IMPRESSION: 1. Severe multilevel arterial occlusive change throughout both legs. 2. Complete occlusion proximal to mid right superficial femoral artery with partial collateral recons titution distally. 3. All remaining waveforms are monophasic with this study considered consistent with that of eleonora chang multilevel severe arterial occlusive change ACT 112: Negative or not required by law. The above report was generated using voice recognition software. It may contain grammatical, syntax or spelling errors. Electronically signed by: Catalino Krause M.D. 05/21/2019 4:34 PM
--- NOTE | 2019-05-21 17:38 | Hospitalist Progress Note ---
Date of Service May 21, 2019 Assessment & Plan (1) Acute cerebrovascular accident: scattered areas of acute stroke in right side, likely due to acute stenosis of right internal carotid artery start on aspirin 81mg and Plavix 75mg start on Lipitor 80mg daily BP control, diabetes control consult neurology - okay to go home, no further work up d/w Dr. Dale, no role for carotid endarterectomy as the reconstituted internal carotid artery is too small he recommends only medical therapy (2) Carotid artery stenosis with cerebral infarction: as above, medical therapy with aspirin and Plavix, Lipitor (3) Hypertension: permissive HTN for now start Losartan tomorrow (4) Claudication of both lower extremities: bilateral dopplers show areas of severe stenosis and complete occlusion no role for angioplasty at this time as it is not emergent Admission and Anticipated Discharge Date Admission Date: May 21, 2019 Anticipated date of discharge: 05/22/19 Subjective patient admitted after midnight, this is follow up note doing well d/w Dr. Dale, no role for CEA d/w Dr. Knox, she is stable for discharge from neurology perspective talked with patient, plan to go home tomorrow Results & Data Results & Data ([facility]) Vital Signs (Past 12 Hours) Vital Signs Temp Pulse Pulse Resp BP Pulse Ox 05/21/19 11:06 36.4 C L 94 H 18 145/83 H 97 05/21/19 08:15 78 05/21/19 07:40 36.5 C 86 19 145/76 H 96 PG Care Time/CCT Total # of Minutes Spent Total Time Spent with Patient: Total time spent is greater than 50% in coordination of care (as documented) at patient's floor/unit and/or counseling patient: Coding Level of Care Code None Diagnoses Acute cerebrovascular accident I63.9 Carotid artery stenosis with cerebral infarction I63.239 Hypertension I10 Claudication of both lower extremities I73.9
--- NOTE | 2019-05-21 18:15 | Neurology Consultation ---
Date of Consultation May 21, 2019 Assessment & Plan (1) ICAO (internal carotid artery occlusion): (2) Acute cerebrovascular accident: Brie Monterroso is a 58 yo woman w/ PMH of HTN, BLE claudication, tobacco abuse, h/o headaches, and GERD who presented to [facility] with acute onset of left-sided weakness, left-sided face and arm numbness, and dysarthria. # Multifocal strokes: Symptom localization: R MCA territory Stroke mechanism: vessel to vessel embolus Stroke Management: - Acute treatment: ASA - 24 hour Holter monitor on discharge - Vitals, Neurochecks, NIHSS per unit routine - BP parameters: SBP CAP 180, hold home anti-hypertensives for permissive HTN until 8pm on 05/21/19, IV Labetalol/Hydralazine PRN - Consult speech, PT, OT for supportive management - Counseled concerning stroke education, smoking cessation, healthy diet, physical activity, weight loss - Follow up with PCP for assistance with outpatient goals (BP <135/85, LDL <70, A1c <7) - Follow up in neurology clinic in 6-8 weeks (can be a telehealth visit if she can set up the portal) Secondary Stroke Prevention: - Antiplatelet: ASA 81mg po daily/plavix 75 mg daily - Anticoagulation: Not indicated at this time - Statin: Atorvastatin 80mg daily HTN: - BP parameters, as above - Hold home BP meds (insert) for now in favor of permissive HTN until this evening FEN/GI: - Diet: Cardiac HH diet and PO meds given absence of bulbar signs or symptoms - Monitor lytes and replete PRN Glucose Control: - Sliding scale insulin and accuchecks per primary team to avoid hyperglycemia # R ICA occlusion: new diagnosis however likely chronic (in looking at CTA head from last year, ICA was larger caliber at that time but imaging did not go down to the bifurcation for comparison to have better idea of age). No clear signs of dissection on available imaging. Appears more like a chronic occlusion with a complex plaque formation around the carotid bifurcation. - agree with maximal medical therapy as above as even if there is a carotid dissection, aspirin is the standard of care for this - will refer for outpatient DSA when she follows up in neurology clinic Thank you for this interesting consult. Plan of care was discussed with primary team. Please call with any questions. (3) Hypertension: (4) Tobacco abuse: History of Present Illness Attending Physician: Larry Correa DO History of Present Illness Brie Monterroso is a 58 yo woman w/ PMH of HTN, BLE claudication, tobacco abuse, h/o headaches, and GERD who presented to [facility] with acute onset of left-sided weakness, left-sided face and arm numbness, and dysarthria. Last seen well around 8 PM on 05/20/2019. She reports that she had a similar episode to this approximately 3 days prior that lasted for an hour or so and resolved. In the ED, vitals notable for BP 183/81 and heart rate 111. Labs notable for WBC 7.5, hemoglobin 15.5, platelets 278, INR 1.0, glucose 114, negative tropon in. CT head notable for 2 chronic-looking infarcts in the right frontal lobe, subacute infarct in the right parietal, mild generalized atrophy, encephalomalacia in the left anterior temporal lobe, mild small vessel disease. CTA head and neck was notable for complete right ICA occlusion, dominant left vert, termination of the right vertebral artery into the right PICA. Independent review of MRI brain was notable for scattered infarcts in the right MCA territory including the right frontal and parietal lobes, encephalomalacia in the left anterior temporal lobe, mild small vessel disease. She was given aspirin and admitted for stroke workup. Stroke work-up was notable for echo that showed EF 65 to 70% with no other abnormalities. A1c 5.6, LDL elevated at 147. On examination today, she reports that she smokes about half a pack per day and has noticeable symptoms of claudication in bilateral lower extremities. Review of systems was notable for pain in her right thumb following an injury several months ago. She reports that all of her symptoms have resolved at this time. She was seen by Dr Dale earlier today who recommended medical management at this time. Allergies Allergy/AdvReac Type Severity Reaction Status Date / Time Penicillins Allergy Intermediate HIVES--CAN Verified 05/20/19 23:56 TAKE CEPHALOSPORINS propoxyphene Allergy Intermediate HIVES Verified 05/20/19 23:57 Home Medications Home Medications Medication Instructions Recorded Confirmed Type albuterol sulfate 2.5 mg INHALATION .Q4-6HRS PRN 07/24/18 05/20/19 History albuterol sulfate [Ventolin HFA] 1 - 2 puff INHALATION .Q4-6HRS PRN 07/24/18 05/20/19 History ondansetron 4 mg disintegrating 4 mg TRANSLINGUAL TID PRN #15 tab 12/30/18 05/20/19 Rx tablet cetirizine 10 mg tablet 10 mg PO DAILY #30 tab 02/05/19 05/20/19 Rx hydrochlorothiazide 12.5 mg tablet 12.5 mg PO QAM #30 tab 02/05/19 05/20/19 Rx losartan 100 mg tablet 100 mg PO DAILY #30 tab 02/05/19 05/20/19 Rx pantoprazole 40 mg tablet,delayed 40 mg PO QAM #30 tab 02/05/19 05/20/19 Rx release Patient History Medical History Brain tumor (benign) (Resolved) Hypertension Surgical History H/O craniotomy (Resolved) Social History Preferred Language: Luxembourger Communication Ability: Effective 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 Physical Exam Physical Exam: General Exam: GEN: NAD, sitting in bed. HEENT: No conjunctival injection, no rhinorrhea. CV: RRR, no peripheral edema PULM: Nonlabored respirations on room air. Neuro Exam: MS: Awake and Alert. Oriented to person, place, and date. Speech fluent and appropriate without dysarthria or paraphasic errors. Language intact including naming, comprehension, repetition. Cognition and memory grossly intact. Attention intact. No neglect. CN: Visual pete full. No extinction to double simultaneous stimuli. No optic disc edema on fundoscopic exam. PERRLA OU. EOMI without nystagmus. Facial sensation intact to LT. Facial muscles full and symmetric. Hearing intact to conversation. Uvula midline with symmetric palatal elevation. Shoulder shrug normal. Tongue midline. MOTOR: Normal bulk and tone. No pronator drift. BUE strength 5/5 at deltoids, biceps, triceps, wrist flexors and extensors, and hand grasp bilaterally. BLE strength 5/5 at iliopsoas, hamstrings, quadriceps, tibialis anterior, and gastrocnemius bilaterally. REFLEXES: 1+ at biceps, triceps, brachioradialis, patella and trace Achilles bilaterally. Flexor plantar responses bilaterally. SENSORY: Intact to LT without extinction to double simultaneous stimuli. Vibration and temperature intact throughout. COORDINATION: No dysmetria or ataxia on [id number] and [id number] bilaterally. Normal Ros bilaterally. GAIT: deferred given physical status Results & Data Vital Signs (Past 12 Hours) Vital Signs Temp Pulse Pulse Resp BP Pulse Ox 05/21/19 11:06 36.4 C L 94 H 18 145/83 H 97 05/21/19 08:15 78 05/21/19 07:40 36.5 C 86 19 145/76 H 96 PG Care Time/CCT Total # of Minutes Spent Total Time Spent with Patient: Total time spent is greater than 50% in coordination of care (as documented) at patient's floor/unit and/or counseling patient: Coding Level of Care Code 72434 Inpt Consult Level 5 Diagnoses ICAO (internal carotid artery occlusion) I65.29 Acute cerebrovascular accident I63.9 Hypertension I10 Tobacco abuse Z72.0
--- NOTE | 2019-05-22 02:13 | Billing Data ---
Date of Service May 22, 2019 Coding Level of Care Code 98022 Initial Inpt Care Lvl 3
[2019-05-22] MEDS: HEPARIN SODIUM/DEXTROSE 25,000 UNITS/500 ML BAG IV SCH (02:55)
[2019-05-22 06:01] LABS: Hematocrit (blood only) 41.7 % (37-47); Hemoglobin 14.1 g/dL (12.0-16.0); Mean Corpuscular Hemoglobin 31.5 pg (25-34); Mean Corpuscular Hgb Conc 33.8 g/dL (32-36); Mean Corpuscular Volume 93.1 fL (80-100); Mean Platelet Volume 10.4 fL (7.4-10.4); Platelet Count 241 K/uL (130-400); RDW Coefficient of Variation 13.3 % (11.5-14.5); RDW Standard Deviation 45.2 fL (36.4-46.3); Red Blood Count 4.48 M/uL (4.2-5.4)
[2019-05-22 06:22] LABS: Partial Thromboplastin Ratio 3.5
[2019-05-22 06:33] LABS: Partial Thromboplastin Time 97.1 Seconds (21.0-31.0)
[2019-05-22 06:36] LABS: BUN Creatinine Ratio 16.4 (10-20); Calcium 8.8 mg/dl (8.5-10.1); Creatinine Clr Calc Pharmacy 76.4 ml/min; Est GFR (African American) 101.1; Est GFR (Non-African American) 87.2; Potassium 4.1 mmol/L (3.5-5.1)
[2019-05-22 07:14] LABS: Basophils # (auto) 0.03 K/uL (0-0.2); Basophils % (auto) 0.4 %; Eosinophils % (auto) 2.8 %; Immature Granulocytes # (auto) 0.02 K/uL (0.00-0.02); Immature Granulocytes % (auto) 0.3 %; Lymphocytes # (auto) 4.21 K/uL (1.2-3.4); Lymphocytes % (auto) 58.5 %; Monocytes # (auto) 0.55 K/uL (0.11-0.59); Monocytes % (auto) 7.6 %; Neutrophils # (auto) 2.19 K/uL (1.4-6.5); Neutrophils % (auto) 30.4 %
[2019-05-22] MEDS ORDERED: STROKE PATIENT DISCHARGE STA (07:59)
[2019-05-22] MEDS: ATORVASTATIN 40 MG TAB PO SCH (08:28)
[2019-05-22] MEDS ORDERED: CLOPIDOGREL BISULFATE 75 MG TAB PO SCH (09:00)
[2019-05-22] MEDS ORDERED: PANTOprazole 40 MG TAB PO SCH (09:00)
[2019-05-22] MEDS ORDERED: ASPIRIN 81 MG ECTAB PO SCH (09:00)
[2019-05-22] MEDS ORDERED: hydroCHLOROthiazide 25 MG TAB PO SCH (09:00)
[2019-05-22] MEDS ORDERED: LOSARTAN POTASSIUM 50 MG TAB PO SCH (09:00)
--- NOTE | 2019-05-22 09:14 | Communication Note ---
Date of Service: May 22, 2019 Patient with severe lower extremity peripheral vascular disease Indices in 0.5 to 0.6 range. No intervention needed at this time. Will follow up in the office after discharge.
--- NOTE | 2019-05-22 10:15 | Pharmacy Report ---
Pharmacist Stroke Counseling - Date of Service May 22, 2019 - Scope: Pharmacy has been consulted to provide medication discharge counseling for this patient admitted with ischemic stroke as per the Pharmacist Discharge Counseling for Stroke Patients Protocol. - Medications on Discharge: Home Medications Medication Instructions Recorded Confirmed albuterol sulfate 2.5 mg INHALATION .Q4-6HRS PRN 07/24/18 05/20/19 albuterol sulfate [Ventolin HFA] 1 - 2 puff INHALATION .Q4-6HRS PRN 07/24/18 05/20/19 New Rx's Medication Instructions Recorded ondansetron 4 mg disintegrating 4 mg TRANSLINGUAL TID PRN #15 tab 12/30/18 tablet cetirizine 10 mg tablet 10 mg PO DAILY #30 tab 02/05/19 hydrochlorothiazide 12.5 mg tablet 12.5 mg PO QAM #30 tab 02/05/19 losartan 100 mg tablet 100 mg PO DAILY #30 tab 02/05/19 pantoprazole 40 mg tablet,delayed 40 mg PO QAM #30 tab 02/05/19 release aspirin 81 mg PO QAM 30 Days #30 tab 05/22/19 atorvastatin 80 mg PO QAM 30 Days #60 tab 05/22/19 clopidogrel 75 mg PO QAM 30 Days #30 tab 05/22/19 - Action: The above medications, specifically ones for stroke treatment/prophylaxis, have been reviewed in detail with the patient and/or patient roofing sales representative(s) prior to discharge. This includes indication, common adverse reactions, drug interactions, and medication administration. Medication counseling has been employed using the teach-back method to ensure understanding. - Outcome: The patient and/or patient roofing sales representative(s) have demonstrated understanding of the medications. Please note, they are aware that the pharmacist will call them within 72 hours post-discharge to confirm that the appropriate medications are being taken and answer any further medication related questions the patient might have at that time. Contact information Individual to be contacted: Brie Monterroso (self) Phone number: [phone] Best time to call: Afternoon Additional comments: Spoke over the phone with Brie this morning. Reviewed new medications to prevent stroke including Aspirin, Plavix, and Lipitor. Discussed why they are being used and common side effects in great detail. Reviewed how to use the medications, what to do if doses are missed, common drug interactions, common side effects, what to watch out for while using the medications, and how to store the medications. Pt verbalized understanding and restated the cueto points of each medication. Pt agreeable to follow up phone call on Saturday. Thank you for allowing pharmacy to be involved in the care of this patient. Please call [phone] or [phone] with any additional questions
--- NOTE | 2019-05-22 10:18 | Discharge Summary ---
Date of Service May 22, 2019 Admission HPI Per Admitting Provider 58 yo F PMHx HTN, extensive smoking history, IBS, GERD presents for acute complaint of intermittent expressive aphasia and continued upper and lower left limb weakness. Initial history on arrival to ED obtained via patient's daughter and patient herself, who, at the time of interview, was without expressive aphasia at that time. Patient was evaluated in the ED by Dr. Andrade for expressive aphasia and left arm/leg weakness which began at 1954 on 05/19. Pt reports that 3 days ago she had a transient eposide of Larm numbness and weakness that went away spontaneously after a few minutes to an hour. Today at 1954 she started to experience difficulty speaking, along with L sided facial numbness, and L arm/leg numbness and weakness that persisted prompting her arrival to the ED. In the ED she was evaluated with a CT head, and CTA head and neck which showed small focal peripheral hypodensity within the right posterior frontal lobe consistent with an age-indeterminate infarct, as well as critical stenosis of the right internal carotid artery with possibility of a R ICA dissection. Dr. Keenan from [place] was spoken to by Dr. Andrade who suggested no urgent need for transfer at this time and to defer to in-house Neurology. Inpatient service consulted for admission. On my interview patient was alert and oriented and did not have difficulty with speaking. Denied fevers, chills, SOB, CP, headache, dizziness, dysarthria, dysphagia, abdominal pain, nausea,vomiting, diarrhea, constipation, urinary Sx. Reported some "pins and needles" sensations in her L arm and leg as well as some subjective sense of weakness of those same limbs. Principal Diagnosis Acute CVA, right side Discharge Exam Constitutional WD/WN, vitals as above Eyes PERRL, conjunctivae normal, anicteric sclerae ENMT external ear and nose normal, oropharynx normal Neck trachea midline, no thyromegaly Respiratory normal respiratory effort, lungs clear to auscultation Cardiovascular RRR, no murmur, no edema Gastrointestinal (Abdomen) normal bowel sounds, soft, nontender, no hepatosplenomegaly Musculoskeletal no cyanosis or clubbing, extremities motor strength 5/5 Skin no rashes, warm and dry Neurologic patellar DTR's 2+ bilat, sensation intact and PERRL, EOMI, accommodation nl, no face palsy, no dysarthria Psychiatric A+Ox3, euthymic affect Lymphatic no cervical or axillary lymphadenopathy Discharge Data Allergies Allergy/AdvReac Type Severity Reaction Status Date / Time Penicillins Allergy Intermediate HIVES--CAN Verified 05/20/19 23:56 TAKE CEPHALOSPORINS propoxyphene Allergy Intermediate HIVES Verified 05/20/19 23:57 Consultations 05/20/19 23:30 ED Decision to Admit Stat 05/21/19 03:52 Consult Case Management - Discharge Planning Routine Consult Neurology Routine 05/21/19 07:30 Consult Vascular Surgery Routine Ordered Studies 05/20/19 22:21 CT angio head w con Stat CT angio neck with con Stat CT head/brain wo con Stat 05/21/19 01:01 MR angio neck wo/w con Urgent MR brain wo/w con Urgent 05/21/19 15:30 US arterial duplex LE Routine Hospital Course (1) Acute cerebrovascular accident: scattered areas of acute stroke in right side, likely due to acute stenosis of right internal carotid artery start on aspirin 81mg and Plavix 75mg start on Lipitor 80mg daily BP control no evidence of DM as Hb A1c normal consult neurology - okay to go home, no further work up d/w Dr. Dale, no role for carotid endarterectomy as the reconstituted internal carotid artery is too small he recommends only medical therapy (2) Hypertension: permissive HTN for now restart Losartan on discharge (3) GERD (gastroesophageal reflux disease): (4) Carotid artery stenosis with cerebral infarction: as above, medical therapy with aspirin and Plavix, Lipitor (5) Tobacco abuse: patient plans to quit immediately (6) Peripheral vascular disease: bilateral dopplers show severe disease d/w Dr. Dale, typically we would offer angioplasty however, procedures can only be done if emergent d/w patient, she knows to come to the ED if her leg / foot would become cold, purple treat with aspirin, Plavix, Lipitor Total Time Total Time Spent Total Time Spent (In Minutes): 32 minutes Total Time Includes: Examination of the Patient, Discharge Planning, Medication Reconciliation and Communication With Other Providers (Dr. Knox, Dr. Dale) Discharge Plan Discharge Items Patient Disposition: Home - Self-Care Reason For Visit: CVA, CAROTID STENOSIS Discharge Diagnosis: Right sided stroke Right carotid stenosis, acute thrombosis (clot) Hypertension Hyperlipidemia Severe peripheral vascular disease Condition on Discharge: Good Goals: medical management of atherosclerotic disease, Plavix, Asprin, Lipitor Activity: Resume your previous activity Driving/Machine Use: Resume 1 day after discharge Weightbearing: Full weightbearing Non-emergency contact: Primary Care Provider and Neurologist Call non-emergency contact if: you have any medication questions Follow-up/Referrals: Ady Mix DO [Primary Care Provider] - (one week, needs follow up due to new diagnosis of stroke, new medications DR SOTOMAYOR OFFICE WILL CALL YOU WITH A FOLLOW UP APT.) Sonia Knox MD [Physician] - (3-[address] PALACIOS OFFICE WILL CALL YOU WITH A FOLLOW UP APT.) Jeancarlos Dale MD [Physician] - (Call [phone] to schedule a follow up appointment in regards to her lower extremity claudication for 3 months after discharge) Diet: Heart Healthy Addtl Attending Provider Instructions: Medications: - PLAVIX (CLOPIDOGREL): 75mg daily, this is antiplatelet, prevents clot formation, prevents strokes - ASPIRIN: 81mg daily, also antiplatelet medication and prevents strokes - LIPITOR: 80mg daily, you require a high intensity statin to help lower cholesterol and stabilize plaques Right sided strokes, scattered distribution, due to severe right sided carotid stenosis, occlusion you were evaluated by vascular surgery, you have severe atherosclerotic disease you are not a candidate for carotid endarterectomy because the vessel above the carotid is so narrow and thin you have blood flow from the left side supplying your brain the treatment is intense medical management with aspirin, Plavix and Lipitor you NEED to stop smoking as of TODAY continue blood pressure control with Losartan and HCTZ follow up with Dr Mix in one week, follow up with Dr. Knox, neurology , in one month Severe peripheral vascular disease symptoms include pain when walking, ultrasound shows severe stenosis of arteries in legs currently we are only able to perform emergency procedures so we cannot perform angioplasty Dr. Dale would recommend angioplasty once we are able to return to performing non-emergent procedures that being said, if you have severe pain even at rest, your foot/leg feels cold, purple come to the ED immediately as this would require emergent intervention will treat medically with aspirin, Plavix and Lipitor again, you NEED to stop smoking TODAY Risk Factors for Stroke: You can reduce your chances of stroke by working with your medical provider to adopt a healthy lifestyle. Some specific ways to lower your chance of stroke are: * If you are a smoker, now is the time to stop smoking cigarettes * If you are diabetic, improve the control of your blood sugars * Avoid excessive amounts of alcohol * Control high blood pressure * Lose weight if you are overweight * Be sure to lead an active lifestyle * Eat a healthy diet low in salt, cholesterol and fat You should know about other risk factors for stroke that you are unable to control. These include: * Age 55 years or older * Male gender * Certain racial groups: , or / * Family History of Stroke, Mini stroke or Heart Attack * Sickle Cell Disease Follow Up: It is important for you to keep your follow up appointments with your medical provider. Who to Call and When: Medical Emergencies: Call 911 immediately if you experience any of the following warning signs and symptoms of Stroke: * Sudden numbness or weakness of the face, arm or leg, especially on one side of the body * Sudden confusion, trouble speaking or understanding * Sudden trouble seeing in one or both eyes * Sudden trouble walking, dizziness, loss of balance or coordination * Sudden severe headache with no cause Do not delay calling 911 if you experience any warning signs or symptoms of a stroke. Delay in seeking medical attention may affect what treatments can be given to you. . Pending Studies at Discharge: No Stand-Alone Forms: Medications to Prevent Stroke, [facility], Smoking Cessation Medications and DC Order Prescriptions: New atorvastatin 40 mg Tablet 80 mg PO QAM 30 Days Qty: 60 RF: 3 clopidogrel 75 mg Tablet 75 mg PO QAM 30 Days Qty: 30 RF: 3 aspirin 81 mg Tablet,Delayed Release (Dr/Ec) 81 mg PO QAM 30 Days Qty: 30 RF: 3 Continued ondansetron 4 mg tablet,disintegrating 4 mg translingual TID PRN (Reason: Nausea) Qty: 15 RF: 2 cetirizine 10 mg tablet 10 mg PO DAILY Qty: 30 RF: 5 hydrochlorothiazide 12.5 mg tablet 12.5 mg PO QAM Qty: 30 RF: 5 losartan 100 mg tablet 100 mg PO DAILY Qty: 30 RF: 5 pantoprazole 40 mg tablet,delayed release (DR/EC) 40 mg PO QAM Qty: 30 RF: 5 albuterol sulfate 2.5 mg /3 mL (0.083 %) solution for nebulization 2.5 mg inhalation .Q4-6HRS PRN (Reason: Shortness Of Breath Or Wheezing) RF: 0 albuterol sulfate [Ventolin HFA] 90 mcg/actuation HFA aerosol inhaler 1 - 2 puff inhalation .Q4-6HRS PRN (Reason: Shortness Of Breath Or Wheezing) RF: 0 Discharge Orders: Discharge Order (Routine); Ordered 05/22/19 Ordered By: Larry Britton/Other Patient Handouts: Effects of a Stroke on the Brain and Body, Stroke Sx, What Is Ischemic Stroke, Stroke Home Safety, Stroke Self Care, Brain Anatomy, Smoking Quit Plan, Smoking Get Help for Quitting, Staying Smoke Free, Heart Disease Meds Admission Data Admit Date/Time: 05/21/19 01:23 Attending Provider: Larry Correa Admit Provider: Agustín Galvan Primary Care Provider: Ady Mix Other Providers: Agustín Galvan ; Sonia Knox ; Jeancarlos Dale Other Interventions: Discharge Summary Assessment (RN) Last Done: 05/22/19 10:29 DC Date/Time DO NOT enter until pt leaves facility: 05/22/19 11:56 Coding Level of Care Code D/C Day Management >30 mins Diagnoses Acute cerebrovascular accident I63.9 Hypertension I10 GERD (gastroesophageal reflux disease) K21.9 Carotid artery stenosis with cerebral infarction I63.239 Tobacco abuse Z72.0 Peripheral vascular disease I73.9
--- NOTE | 2019-05-25 14:12 | Pharmacy Report ---
Pharmacist Post D/C Phone Note - Phone Note: Date of phone call: May 25, 2019. Individual with whom pharmacist spoke to: DWAYNE THORNTON The patient was unable to be reached for a follow-up phone call within the 72 hour time frame. Discharge counseling pharmacist contact information has already been provided to the patient should questions arise. Thank you for allowing us to be involved in the care of this patient. - Home Medications: Home Medications Medication Instructions Recorded Confirmed albuterol sulfate 2.5 mg INHALATION .Q4-6HRS PRN 07/24/18 05/20/19 albuterol sulfate [Ventolin HFA] 1 - 2 puff INHALATION .Q4-6HRS PRN 07/24/18 05/20/19 New Rx's Medication Instructions Recorded ondansetron 4 mg disintegrating 4 mg TRANSLINGUAL TID PRN #15 tab 12/30/18 tablet cetirizine 10 mg tablet 10 mg PO DAILY #30 tab 02/05/19 hydrochlorothiazide 12.5 mg tablet 12.5 mg PO QAM #30 tab 02/05/19 losartan 100 mg tablet 100 mg PO DAILY #30 tab 02/05/19 pantoprazole 40 mg tablet,delayed 40 mg PO QAM #30 tab 02/05/19 release aspirin 81 mg PO QAM 30 Days #30 tab 05/22/19 atorvastatin 80 mg PO QAM 30 Days #60 tab 05/22/19 clopidogrel 75 mg PO QAM 30 Days #30 tab 05/22/19
== END 2019-05-22 11:56 | disposition home or self-care (01) | DRG 64 ==
LOC: ED 22:05 → 2E 05-21 01:23 → SUATTDRO 05-21 01:23 → 2E 05-21 02:57

== ENCOUNTER 2019-09-29 20:32 | Observation (INO) ==
--- NOTE | 2019-09-29 21:01 | Emergency Department Note ---
Impression & Plan TIA (transient ischemic attack), Numbness ED Provider Note Provider: Luiz Knox MD DATE OF SERVICE: 09/29/2019 CHIEF COMPLAINT: Headache, weakness, numbness HISTORY OF PRESENT ILLNESS: Patient is a 59-year-old female with a history of hypertension, bilateral lower extremity claudication, tobacco abuse, headaches, GERD, and prior CVA with right ICA stenosis presenting today with the onset at 8 PM of sudden onset headache with numbness of her face and that her vision seemed off. Patient states that she has some slight numbness in her left leg and arm and some slight weakness here; later she more clearly reports that this weakness and numbness symptoms in her extremities are chronic from her prior strokes. No trauma reported. Patient states she is undergoing evaluation for a carotid stent given significant critical stenosis. Waiting for callback from [facility] regarding this. Patient states compliance at home medication significantly Plavix and aspirin. No recent trauma. REVIEW OF SYSTEMS: A total of 10 review of systems was obtained and negative except as stated above in the HPI. PAST MEDICAL HISTORY: As noted above MEDICATIONS: Reviewed on medication list. SOCIAL HISTORY: Patient is a smoker. Lives at home. PHYSICAL EXAM: GENERAL: alert and oriented in no acute distress on stretcher Head: normocephalic and atraumatic EYES: No injection, discharge or icterus. PERRL NECK: Trachea midline. Supple. ENT: Mucous membranes pink and moist. Poor dentition. LUNGS: Airway patent. No retractions. Breath sounds clear anteriorly HEART: Regular rate and rhythm. No chest wall tenderness ABDOMEN: Soft and non-tender, without guarding or rebound. SKIN: Acyanotic, warm, dry, without rashes EXTREMITIES: Without swelling, tenderness or deformity. Exam after extravasation of IV contrast on the left extremity show some mild tenderness but no clear fluctuance. Neurovascularly intact in the left hand at baseline. NEUROLOGICAL: No current aphasia. No appreciable facial droop. Patient endorses some perioral numbness predominantly on the left side of her mouth. Some slight left-sided pronator drift and uncoordination of her left [id number]. Slight weakness of the left arm appreciated. No acute visual field cuts appreciated. EK beats minute normal sinus rhythm. No PVC or PAC. No acute ST segment elevation or depression. QTC 430. CONTINUOUS CARDIAC MONITORING: was ordered and showed a heart rate of 72 bpm in normal sinus rhythm Patient's hypertension was referred to the hospitalist HOSPITAL COURSE: 2043 Patient was first seen and H&P performed in B1. Stroke alert to be called. Patient to go to CT. [address] Keenan of tele-stroke. She will evaluate the patient. Discussed with pharmacy and they will premix TPA at this time. [address] Keenan recommendation against TPA at this time given minimal symptoms. Will send the patient for CTAs with new IV site. 2244 Patient reassessed and updated. Patient states that her left arm is feeling a bit cold and the ice pack will be removed. States that her numbness and symptoms have improved at this time and resolved back to baseline. 2301 discussed with the [facility] hospitalist team. Patient's laboratory studies and imaging reviewed. Differential includes Infection, dehydration, metabolic abnormality, hypo/hyperglycemia, electrolyte disturbance, anemia, hypoxia, cardiac sources, intracerebral event, toxicologic, neurologic, as well as other pathologies. IMPRESSION/MEDICAL DECISION MAKING: Patient is inside the TPA window. Stroke alert was called. Difficult given her history but certainly mechanism for new stroke exist. Discussed with tele- stroke. CT without evidence of new acute and cranial bleed. History of significant right carotid stenosis severe. Patient is on aspirin and Plavix at this time. No facial droop. Further discussion elucidates that only the left- sided perioral numbness and headache and visual changes was new today. Headache and visual changes are improved upon initial evaluation here. Agree with tele-stroke recommendations against TPA and the patient was in agreement given the risks associated and minimal symptoms at this time. CTAs were completed does not appear to show significant evolution. Tele-stroke did recommend admission for MRI and to discuss further acceleration of carotid stenting but did not recommend acute transfer at this time. Basic EKG and labs were otherwise completed. Patient symptoms resolved while in the emergency department. She did have some extravasation of contrast into her left upper arm. Neurovascularly intact in the left upper arm after this with mild distal left upper arm tenderness. DIAGNOSIS: TIA, numbness DISPOSITION: Hospitalist will evaluate Patient was agreeable with this plan. Preliminary Findings Only See Final Report For Complete Findings CTA HEAD: Comparison to May 20, 2019, MRI brain from May 21, 2019, CT angiogram July 24, 2018. The distal right internal carotid artery is very small measuring 1-2 mm in diameter with configuration suggesting previous occlusion and recanalization. This is similar to previous. There are moderate calcifications in the cavernous portion of the distal internal carotid arteries with 20% stenosis on the left. The A1 and M1 segments are widely patent bilaterally. There is origin of both posterior cerebral arteries. The distal right vertebral artery is very small and does not appear to reach the basilar artery. The distal left vertebral and basilar arteries appear within normal limits. The visualized portions of the anterior, middle, and posterior cerebral arteries appear unremarkable. No aneurysm, vascular malformation, or arterial thrombus is identified. Previous left temporoparietal craniotomy. There is opacification of the left mastoid air cells suggesting mastoiditis. There is a normal gyral pattern of the brain. There is no mass lesion or midline shift. Decreased density in the right parietal lobe consistent with old infarct which appeared to have been acute on May 21, 2019 Radiologist: Luiz Camacho MD Study ready at 22:09 and initial results transmitted at 22:27 Preliminary Findings Only See Final Report For Complete Findings CTA NECK: Comparison to May 20, 2019. Moderate calcification of the nondilated aortic arch. Great vessel origins are widely patent. There is mixed density plaque occluding the origin of the right internal carotid artery. There is collateral reconstitution of the right internal carotid artery 2 cm beyond the occlusion. The vessel distal to this is very small measuring only 1-2 mm in diameter but is patent to the brain. The left common and internal carotid arteries are widely patent. No atherosclerotic plaque, stenosis, or dissection. There is calcified plaque obscuring the origin of the right vertebral artery which is very small measuring only 1-2 mm in diameter. There is tapers off at the braga magnum it does not appear to reach the basilar artery. The left vertebral artery is widely patent with no significant stenosis or dissection. Moderate degenerative disc disease in the lower cervical spine. No acute f racture or subluxation is seen. Neck soft tissues appear unremarkable. Radiologist: Luiz Camacho MD Study ready at 22:09 and initial results transmitted at 22:35 Past Med/Surg History Social History Smoking Status: Current every day smoker Age Started Using Tobacco: 13; Cigarettes Per Day: 10; Second Hand Exposure: No; Hx Alcohol Use: Yes Hx Substance Use: No Preferred Language: Hebrew Communication Ability: Effective Junior Database Administrator Required: No Beliefs That Will Affect Care: None Current Living Situation: Alone Feels Safe at Home: Yes Allergies Allergies Allergy/AdvReac Type Severity Reaction Status Date / Time Penicillins Allergy Intermediate Hives Verified 09/29/19 21:54 propoxyphene Allergy Intermediate Hives Verified 09/29/19 21:54 Home Meds Home Medications Medication Instructions Recorded Confirmed albuterol sulfate 2.5 mg INHALATION .Q4-6HRS PRN 07/24/18 09/29/19 cetirizine [Zyrtec] 10 mg PO QAM 09/14/19 09/29/19 clopidogrel [Plavix] 75 mg PO QAM 09/14/19 09/29/19 losartan 100 mg PO QAM 09/29/19 09/29/19 pantoprazole 40 mg PO QPM 09/29/19 09/29/19 Previous Rx's Medication Instructions Recorded aspirin 81 mg PO QAM 30 Days #30 tab 05/22/19 atorvastatin 80 mg PO QAM 30 Days #60 tab 05/22/19 hydrochlorothiazide 12.5 mg tablet 12.5 mg PO QAM #30 tab 08/13/19 ondansetron 4 mg disintegrating 4 mg TRANSLINGUAL TID PRN #15 tab 08/13/19 tablet albuterol sulfate 90 mcg/actuation 1 - 2 puff INHALATION Q4H PRN #8.5 09/22/19 aerosol inhaler gm Results & Data (ED) Vital Signs Vital Signs - 24 hr 09/29/19 20:39 09/29/19 20:45 09/29/19 21:16 Temperature 37.1 C Temperature Source Oral Pulse Rate 108 H 101 H 99 H Pulse Rate from SpO2 Sensor 102 H 101 H Pulse Rhythm Regular Pulse Strength Normal Respiratory Rate 22 23 17 Respiratory Effort / Characteristics Non-Labored Spontaneous Respiratory Depth Normal Respiratory Pattern Regular Blood Pressure 142/72 H 170/81 H Blood Pressure Mean 95 104 Blood Pressure Position Sitting Pulse Oximetry 98 98 97 Oxygen Delivery Method Room Air Room Air Room Air Sepsis Recent Fever Within 48 Hours No Sepsis New/Unexplained Change in Mental Status No Sepsis Action Taken by Nursing No Action Required 09/29/19 21:21 09/29/19 21:38 09/29/19 22:07 Temperature Temperature Source Pulse Rate 95 H 95 H 88 Pulse Rate from SpO2 Sensor 95 H 94 H 89 Pulse Rhythm Pulse Strength Respiratory Rate 19 23 20 Respiratory Effort / Characteristics Respiratory Depth Respiratory Pattern Blood Pressure 167/107 H 148/102 H 139/70 Blood Pressure Mean 121 117 101 Blood Pressure Position Pulse Oximetry 98 97 97 Oxygen Delivery Method Room Air Sepsis Recent Fever Within 48 Hours Sepsis New/Unexplained Change in Mental Status Sepsis Action Taken by Nursing Laboratory Data Result diagrams: 09/29/19 21:21 09/29/19 20:54 Lab Results 09/29/19 09/29/19 09/29/19 Range/Units 20:54 20:54 20:54 WBC Cancelled RBC Cancelled Hgb Cancelled POC Hgb (12.0-16.0) g/dl Hct Cancelled POC Hct (37-47) % MCV Cancelled MCH Cancelled MCHC Cancelled RDW Std Deviation Cancelled RDW Coeff of Tori Cancelled Plt Count Cancelled MPV Cancelled Immature Gran % (Auto) Cancelled Neut % (Auto) Cancelled Lymph % (Auto) Cancelled [place] % (Auto) Cancelled Eos % (Auto) Cancelled Baso % (Auto) Cancelled Neut # (Auto) Cancelled Lymph # (Auto) Cancelled [place] # (Auto) Cancelled Eos # (Auto) Cancelled Baso # (Auto) Cancelled Immature Gran # (Auto) Cancelled Absolute Nucleated RBC Cancelled Nucleated RBC % (auto) Cancelled Neutrophils % (Manual) Cancelled Band Neutrophils % Cancelled Lymphocytes % (Manual) Cancelled Prolymphocyte % Cancelled Reactive Lymphs % (Man) Cancelled Monocytes % (Manual) Cancelled Eosinophils % (Manual) Cancelled Basophils % (Manual) Cancelled Metamyelocytes % (Man) Cancelled Myelocytes % (Man) Cancelled Promyelocytes % (Man) Cancelled Blast Cells % (Manual) Cancelled Plasma Cell % (Manual) Cancelled Other Cells % Cancelled Nucleated RBC % Cancelled Neutrophils # (Manual) Cancelled Band Neutrophils # Cancelled Total Absolute Neuts Cancelled Lymphocytes # (Manual) Cancelled Prolymphocyte # Cancelled Reactive Lymphs # Cancelled Total Abs Lymphocytes Cancelled Monocytes # (Manual) Cancelled Eosinophils # (Manual) Cancelled Basophils # (Manual) Cancelled Metamyelocytes # (Man) Cancelled Myelocytes # (Manual) Cancelled Promyelocytes # (Man) Cancelled Blast Cells # (Man) Cancelled Plasma Cell # (Manual) Cancelled Other Cells # Cancelled Nucleated RBCs # (Man) Cancelled Hypersegmented Neuts Cancelled Hyposegmented Neuts Cancelled Hypogranular Neuts Cancelled Large Granular Lymphs Cancelled # Lrg Granular Lymphs Cancelled Hairy Cells Cancelled Smudge Cells Cancelled Toxic Granulation Cancelled Toxic Vacuolation Cancelled Dohle Bodies Cancelled Triny Rods Cancelled Platelet Estimate Cancelled Hypogranular Platelets Cancelled Clumped Platelets Cancelled Giant Platelets Cancelled Platelet Satelliting Cancelled RBC Morphology Cancelled Polychromasia Cancelled Hypochromasia Cancelled Poikilocytosis Cancelled Basophilic Stippling Cancelled Anisocytosis Cancelled Microcytosis Cancelled Macrocytosis Cancelled Spherocytes Cancelled Pappenheimer Bodies Cancelled Sickle Cells Cancelled Target Cells Cancelled Tear Drop Cells Cancelled Ovalocytes Cancelled Stomatocytes Cancelled [place] Bodies Cancelled Echinocytes Cancelled Acanthocytes (Spur) Cancelled Rouleaux Cancelled RBC Agglutinates Cancelled Schistocytes Cancelled RBC Morph Comment Cancelled Sezary Cell Cancelled PT 10.2 (9.0-12.0) Seconds INR 1.0 (0.9-1.1) APTT 21.0 (21.0-31.0) Seconds PTT Ratio 0.8 POC Sodium (135-144) mmol/L Sodium 139 (136-145) mmol/L POC Potassium (3.3-5.0) mmol/L Potassium 3.8 (3.5-5.1) mmol/L POC Chloride (101-112) mmol/L Chloride 107 (98-107) mmol/L Carbon Dioxide 29 (21-32) mmol/L POC Total CO2 (24-31) mmol/L Anion Gap 3.0 (3-11) POC Anion Gap (16-25) mmol/L POC BUN (7-18) mg/dl BUN 13 (7-18) mg/dl Creatinine 0.85 (0.6-1.2) mg/dl POC Creatinine (0.6-1.3) mg/dl Est Cr Clr Drug Dosing 62.5 ml/min Est GFR ( Amer) 86.3 Est GFR (Non-Af Amer) 74.5 BUN/Creatinine Ratio 15.1 (10-20) Glucose 118 H (70-99) mg/dl POC Glucose (70-99) mg/dl POC Glucose (other) (70-99) mg/dl Calcium 9.6 (8.5-10.1) mg/dl POC Ioniz Calcium Marifer (1.12-1.32) mmol/l Magnesium 1.9 (1.8-2.4) mg/dl Total Bilirubin 0.2 (0.2-1) mg/dl AST 19 (15-37) U/L ALT 28 (12-78) U/L Alkaline Phosphatase 115 (45-117) U/L Troponin I < 0.015 (0-0.045) ng/ml Total Protein 7.1 (6.4-8.2) gm/dl Albumin 3.7 (3.4-5.0) gm/dl Globulin 3.4 (2.5-4.0) gm/dl Albumin/Globulin Ratio 1.1 (0.9-2) Specimen Hemolysis Blood Type Antibody Screen 09/29/19 09/29/19 09/29/19 Range/Units 20:56 20:59 21:14 WBC RBC Hgb POC Hgb 14.6 (12.0-16.0) g/dl Hct POC Hct 43 (37-47) % MCV MCH MCHC RDW Std Deviation RDW Coeff of Tori Plt Count MPV Immature Gran % (Auto) Neut % (Auto) Lymph % (Auto) [place] % (Auto) Eos % (Auto) Baso % (Auto) Neut # (Auto) Lymph # (Auto) [place] # (Auto) Eos # (Auto) Baso # (Auto) Immature Gran # (Auto) Absolute Nucleated RBC Nucleated RBC % (auto) Neutrophils % (Manual) Band Neutrophils % Lymphocytes % (Manual) Prolymphocyte % Reactive Lymphs % (Man) Monocytes % (Manual) Eosinophils % (Manual) Basophils % (Manual) Metamyelocytes % (Man) Myelocytes % (Man) Promyelocytes % (Man) Blast Cells % (Manual) Plasma Cell % (Manual) Other Cells % Nucleated RBC % Neutrophils # (Manual) Band Neutrophils # Total Absolute Neuts Lymphocytes # (Manual) Prolymphocyte # Reactive Lymphs # Total Abs Lymphocytes Monocytes # (Manual) Eosinophils # (Manual) Basophils # (Manual) Metamyelocytes # (Man) Myelocytes # (Manual) Promyelocytes # (Man) Blast Cells # (Man) Plasma Cell # (Manual) Other Cells # Nucleated RBCs # (Man) Hypersegmented Neuts Hyposegmented Neuts Hypogranular Neuts Large Granular Lymphs # Lrg Granular Lymphs Hairy Cells Smudge Cells Toxic Granulation Toxic Vacuolation Dohle Bodies Triny Rods Platelet Estimate Hypogranular Platelets Clumped Platelets Giant Platelets Platelet Satelliting RBC Morphology Polychromasia Hypochromasia Poikilocytosis Basophilic Stippling Anisocytosis Microcytosis Macrocytosis Spherocytes Pappenheimer Bodies Sickle Cells Target Cells Tear Drop Cells Ovalocytes Stomatocytes [place] Bodies Echinocytes Acanthocytes (Spur) Rouleaux RBC Agglutinates Schistocytes RBC Morph Comment Sezary Cell PT (9.0-12.0) Seconds INR (0.9-1.1) APTT (21.0-31.0) Seconds PTT Ratio POC Sodium 141 (135-144) mmol/L Sodium (136-145) mmol/L POC Potassium 3.7 (3.3-5.0) mmol/L Potassium (3.5-5.1) mmol/L POC Chloride 101 (101-112) mmol/L Chloride (98-107) mmol/L Carbon Dioxide (21-32) mmol/L POC Total CO2 28 (24-31) mmol/L Anion Gap (3-11) POC Anion Gap 17.0 (16-25) mmol/L POC BUN 13 (7-18) mg/dl BUN (7-18) mg/dl Creatinine (0.6-1.2) mg/dl POC Creatinine 0.8 (0.6-1.3) mg/dl Est Cr Clr Drug Dosing ml/min Est GFR ( Amer) Est GFR (Non-Af Amer) BUN/Creatinine Ratio (10-20) Glucose (70-99) mg/dl POC Glucose 128 H (70-99) mg/dl POC Glucose (other) 119 H (70-99) mg/dl Calcium (8.5-10.1) mg/dl POC Ioniz Calcium Marifer 1.21 (1.12-1.32) mmol/l Magnesium (1.8-2.4) mg/dl Total Bilirubin (0.2-1) mg/dl AST (15-37) U/L ALT (12-78) U/L Alkaline Phosphatase (45-117) U/L Troponin I (0-0.045) ng/ml Total Protein (6.4-8.2) gm/dl Albumin (3.4-5.0) gm/dl Globulin (2.5-4.0) gm/dl Albumin/Globulin Ratio (0.9-2) Specimen Hemolysis Blood Type Cancelled Antibody Screen Cancelled 09/29/19 Range/Units 21:21 WBC 9.45 RBC 4.71 Hgb 14.7 POC Hgb (12.0-16.0) g/dl Hct 44.6 POC Hct (37-47) % MCV 94.7 MCH 31.2 MCHC 33.0 RDW Std Deviation 49.5 H RDW Coeff of Tori 14.3 Plt Count 349 MPV 10.4 Immature Gran % (Auto) 0.2 Neut % (Auto) 45.6 Lymph % (Auto) 41.8 [place] % (Auto) 8.7 Eos % (Auto) 3.1 Baso % (Auto) 0.6 Neut # (Auto) 4.31 Lymph # (Auto) 3.95 H [place] # (Auto) 0.82 H Eos # (Auto) 0.29 Baso # (Auto) 0.06 Immature Gran # (Auto) 0.02 Absolute Nucleated RBC Nucleated RBC % (auto) Neutrophils % (Manual) Band Neutrophils % Lymphocytes % (Manual) Prolymphocyte % Reactive Lymphs % (Man) Monocytes % (Manual) Eosinophils % (Manual) Basophils % (Manual) Metamyelocytes % (Man) Myelocytes % (Man) Promyelocytes % (Man) Blast Cells % (Manual) Plasma Cell % (Manual) Other Cells % Nucleated RBC % Neutrophils # (Manual) Band Neutrophils # Total Absolute Neuts Lymphocytes # (Manual) Prolymphocyte # Reactive Lymphs # Total Abs Lymphocytes Monocytes # (Manual) Eosinophils # (Manual) Basophils # (Manual) Metamyelocytes # (Man) Myelocytes # (Manual) Promyelocytes # (Man) Blast Cells # (Man) Plasma Cell # (Manual) Other Cells # Nucleated RBCs # (Man) Hypersegmented Neuts Hyposegmented Neuts Hypogranular Neuts Large Granular Lymphs # Lrg Granular Lymphs Hairy Cells Smudge Cells Toxic Granulation Toxic Vacuolation Dohle Bodies Triny Rods Platelet Estimate Hypogranular Platelets Clumped Platelets Giant Platelets Platelet Satelliting RBC Morphology Polychromasia Hypochromasia Poikilocytosis Basophilic Stippling Anisocytosis Microcytosis Macrocytosis Spherocytes Pappenheimer Bodies Sickle Cells Target Cells Tear Drop Cells Ovalocytes Stomatocytes [place] Bodies Echinocytes Acanthocytes (Spur) Rouleaux RBC Agglutinates Schistocytes RBC Morph Comment Sezary Cell PT (9.0-12.0) Seconds INR (0.9-1.1) APTT (21.0-31.0) Seconds PTT Ratio POC Sodium (135-144) mmol/L Sodium (136-145) mmol/L POC Potassium (3.3-5.0) mmol/L Potassium (3.5-5.1) mmol/L POC Chloride (101-112) mmol/L Chloride (98-107) mmol/L Carbon Dioxide (21-32) mmol/L POC Total CO2 (24-31) mmol/L Anion Gap (3-11) POC Anion Gap (16-25) mmol/L POC BUN (7-18) mg/dl BUN (7-18) mg/dl Creatinine (0.6-1.2) mg/dl POC Creatinine (0.6-1.3) mg/dl Est Cr Clr Drug Dosing ml/min Est GFR ( Amer) Est GFR (Non-Af Amer) BUN/Creatinine Ratio (10-20) Glucose (70-99) mg/dl POC Glucose (70-99) mg/dl POC Glucose (other) (70-99) mg/dl Calcium (8.5-10.1) mg/dl POC Ioniz Calcium Marifer (1.12-1.32) mmol/l Magnesium (1.8-2.4) mg/dl Total Bilirubin (0.2-1) mg/dl AST (15-37) U/L ALT (12-78) U/L Alkaline Phosphatase (45-117) U/L Troponin I (0-0.045) ng/ml Total Protein (6.4-8.2) gm/dl Albumin (3.4-5.0) gm/dl Globulin (2.5-4.0) gm/dl Albumin/Globulin Ratio (0.9-2) Specimen Hemolysis Blood Type Antibody Screen Administered Medications Discontinued Medications Sodium Chloride (Nss 1000ml) 1,000 mls @ 999 mls/hr IV .Q1H1M ONE Stop: 09/29/19 22:33 Last Admin: 09/29/19 21:54 Dose: 999 mls/hr Documented by: [id number] Discharge Plan Visit Data Chief Complaint: TIA Symptoms Stated Complaint: POSSIBLE MINI STROKE ED Provider: Luiz Knox Discharge Problem: TIA (transient ischemic attack), Numbness Patient Disposition: Being Evaluated by Hospitalist Forms Stand Alone Forms: [facility] Prescriptions Prescriptions: No Action hydrochlorothiazide 12.5 mg tablet 12.5 mg PO QAM Qty: 30 RF: 5 ondansetron 4 mg tablet,disintegrating 4 mg translingual TID PRN (Reason: Nausea) Qty: 15 RF: 2 albuterol sulfate [Ventolin HFA] 90 mcg/actuation HFA aerosol inhaler 1 - 2 puff inhalation Q4H PRN (Reason: Shortness Of Breath Or Wheezing) Qty: 8.5 RF: 0 albuterol sulfate 2.5 mg /3 mL (0.083 %) solution for nebulization 2.5 mg inhalation .Q4-6HRS PRN (Reason: Shortness Of Breath Or Wheezing) RF: 0 atorvastatin 40 mg Tablet 80 mg PO QAM 30 Days Qty: 60 RF: 3 aspirin 81 mg Tablet,Delayed Release (Dr/Ec) 81 mg PO QAM 30 Days Qty: 30 RF: 3 cetirizine [Zyrtec] 10 mg tablet 10 mg PO QAM RF: 0 clopidogrel [Plavix] 75 mg tablet 75 mg PO QAM RF: 0 pantoprazole 40 mg tablet,delayed release (DR/EC) 40 mg PO QPM RF: 0 losartan 100 mg tablet 100 mg PO QAM RF: 0 Referrals Referrals: Ady Mix DO [Primary Care Provider] -
[2019-09-29 21:09] LABS: iSTAT Creatinine 0.8 mg/dl (0.6-1.3); iSTAT Hemoglobin 14.6 g/dl (12.0-16.0); iSTAT Ionized Calcium 1.21 mmol/l (1.12-1.32); iSTAT Potassium 3.7 mmol/L (3.3-5.0)
[2019-09-29 21:12] LABS: Partial Thromboplastin Ratio 0.8; Prothrombin Time 10.2 Seconds (9.0-12.0)
--- NOTE | 2019-09-29 21:15 | CT Scan Report ---
CT SCAN OF THE BRAIN WITHOUT IV CONTRAST CLINICAL HISTORY: Strokelike symptoms. COMPARISON STUDY: CT of the brain dated 05/20/2019. MRI of the brain dated 05/21/2019. TECHNIQUE: Unenhanced axial CT scan of the brain is performed from the vertex to the skull base. A d ose lowering technique was utilized adhering to the principles of ALARA. FINDINGS: Brain parenchyma: Foci of high right parietal, right frontal, and left temporal encephalomalacia are consistent with remote infarcts. There is minimal microangiopathic disease. There is no hemorrhage or mass effect. Focal loss of neumann-white matter differentiation the right frontal lobe seen on image #1 8 is new from previous and may represent subacute ischemia. No extra-axial fluid collection is seen. Ventricles, sulci, cisterns: Normal in configuration. Intracranial vasculature: There is atherosclerotic calcification of the cavernous carotid and vertebr al arteries. Calvarium: There is evidence of previous left-sided craniotomy. No destructive calvarial lesion is id entified. Sinuses and mastoids: The visualized paranasal sinuses are clear. There is a large left mastoid effus ion. The right mastoid air cells are well pneumatized. Orbits: The bony orbits are grossly intact. IMPRESSION: 1. Focal loss of neumann-white matter differentiation in the right frontal lobe was not clearly seen pre viously and subacute ischemia is not excluded. 2. There is no hemorrhage or mass effect. 3. Numerous additional tiny chronic infarcts and postoperative change is similar to prior studies. 4. Large left mastoid effusion ACT 112: Negative or not required by law. Electronically signed by: Trung Noland M.D. 09/29/2019 9:13 PM
[2019-09-29 21:26] LABS: Basophils # (auto) 0.06 K/uL (0-0.2); Basophils % (auto) 0.6 %; Eosinophils # (auto) 0.29 K/uL (0-0.5); Eosinophils % (auto) 3.1 %; Hematocrit (blood only) 44.6 % (37-47); Hemoglobin 14.7 g/dL (12.0-16.0); Immature Granulocytes # (auto) 0.02 K/uL (0.00-0.02); Immature Granulocytes % (auto) 0.2 %; Lymphocytes # (auto) 3.95 K/uL (1.2-3.4); Lymphocytes % (auto) 41.8 %; Mean Corpuscular Hemoglobin 31.2 pg (25-34); Mean Corpuscular Volume 94.7 fL (80-100); Mean Platelet Volume 10.4 fL (7.4-10.4); Monocytes # (auto) 0.82 K/uL (0.11-0.59); Monocytes % (auto) 8.7 %; Neutrophils # (auto) 4.31 K/uL (1.4-6.5); Neutrophils % (auto) 45.6 %; Platelet Count 349 K/uL (130-400); RDW Coefficient of Variation 14.3 % (11.5-14.5); RDW Standard Deviation 49.5 fL (36.4-46.3); Red Blood Count 4.71 M/uL (4.2-5.4); White Blood Count 9.45 K/uL (4.8-10.8)
[2019-09-29 21:30] LABS: Alanine Aminotransferase 28 U/L (12-78); Albumin Globulin Ratio 1.1 (0.9-2); Albumin Level 3.7 gm/dl (3.4-5.0); Alkaline Phosphatase 115 U/L (45-117); Aspartate Aminotransferase 19 U/L (15-37); BUN Creatinine Ratio 15.1 (10-20); Bilirubin,Total 0.2 mg/dl (0.2-1); Blood Urea Nitrogen 13 mg/dl (7-18); Calcium 9.6 mg/dl (8.5-10.1); Carbon Dioxide 29 mmol/L (21-32); Chloride 107 mmol/L (98-107); Creatinine Clr Calc Pharmacy 62.5 ml/min; Est GFR (African American) 86.3; Est GFR (Non-African American) 74.5; Globulin 3.4 gm/dl (2.5-4.0); Glucose 118 mg/dl (70-99); Magnesium 1.9 mg/dl (1.8-2.4); Potassium 3.8 mmol/L (3.5-5.1); Sodium 139 mmol/L (136-145); Total Protein 7.1 gm/dl (6.4-8.2); Troponin I < 0.015 ng/ml (0-0.045)
[2019-09-29] MEDS ORDERED: SODIUM CHLORIDE 0.9% 1000ML 1,000 ML IV ONE (21:33)
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
[2019-09-30] MEDS ORDERED: ONDANSETRON INJ 2 MG/ML 2 ML VIAL IV PRN (00:46)
[2019-09-30] MEDS ORDERED: ACETAMINOPHEN 325 MG TAB PO PRN (00:46)
[2019-09-30] MEDS ORDERED: ALBUTEROL 0.083% NEBU SOLN 3 ML VIAL INH PRN (00:46)
[2019-09-30] MEDS ORDERED: PHARMACIST DISCHARGE MED REC CONSULT PRN (00:46)
[2019-09-30] MEDS: POTASSIUM CHLORIDE 10 MEQ in SODIUM CHLORIDE 0.9% 1000ML 1,000 ML IV SCH ×2 (02:45→14:27)
[2019-09-30 06:22] LABS: Basophils # (auto) 0.02 K/uL (0-0.2); Basophils % (auto) 0.3 %; Eosinophils # (auto) 0.29 K/uL (0-0.5); Hematocrit (blood only) 38.9 % (37-47); Immature Granulocytes # (auto) 0.01 K/uL (0.00-0.02); Immature Granulocytes % (auto) 0.1 %; Lymphocytes # (auto) 3.35 K/uL (1.2-3.4); Lymphocytes % (auto) 46.6 %; Mean Corpuscular Hemoglobin 31.5 pg (25-34); Mean Corpuscular Hgb Conc 33.4 g/dL (32-36); Mean Corpuscular Volume 94.2 fL (80-100); Mean Platelet Volume 10.1 fL (7.4-10.4); Monocytes # (auto) 0.54 K/uL (0.11-0.59); Monocytes % (auto) 7.5 %; Neutrophils # (auto) 2.98 K/uL (1.4-6.5); Neutrophils % (auto) 41.5 %; Platelet Count 306 K/uL (130-400); RDW Coefficient of Variation 14.5 % (11.5-14.5); Red Blood Count 4.13 M/uL (4.2-5.4); White Blood Count 7.19 K/uL (4.8-10.8)
--- NOTE | 2019-09-30 06:47 | CT Scan Report ---
CT angio neck with con HISTORY: Mental status change Stroke evaluation TECHNIQUE: Multiaxial CT angiography of the neck was performed IV contrast: 120 cc All measurements were calculated based on NASCET criteria. Maximum intensity projection images were also obtained. A dose lowering technique was utilized adhering to the principles of ALARA. COMPARISON STUDY: None. FINDINGS: Atherosclerotic change of the abdominal aortic arch and associated origin of the great vess els. The left carotid system showed mild scattered plaque formation but no significant stenosis is se en. There is occlusion of the right internal carotid artery at its origin. There is partial collateral re constitution from sidebranches of the right external carotid artery. There is small caliber right internal carotid artery extending to the cavernous sinus. 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 The l eft vertebral artery is dominant. IMPRESSION: 1. Occlusion origin right internal carotid artery with collateral reconstitution 2 cm distal to the b ifurcation. 2. Minimal flow to the distal right internal carotid artery although it is patent to the cavernous si nus.. 3. Small caliber right vertebral artery with a high degree of the superimposed stenotic changes dista l aspect. ACT 112: Negative or not required by law. The above report was generated using voice recognition software. It may contain grammatical, syntax or spelling errors. Electronically signed by: Catalino Krause M.D. 09/30/2019 6:46 AM
[2019-09-30 07:09] LABS: Calcium 7.9 mg/dl (8.5-10.1); Creatinine Clr Calc Pharmacy 83.1 ml/min; Est GFR (African American) 112.4
--- NOTE | 2019-09-30 07:26 | CT Scan Report ---
HEAD CTA HISTORY: Stroke evaluation TECHNIQUE: Multiaxial CT images of the head were performed following the intravenous administration o f contrast to evaluate the major cerebral vessels. Maximum intensity projection images were also obta ined. A dose lowering technique was utilized adhering to the principles of ALARA. COMPARISON: Head CT 09/29/2019. Head CTA 05/20/2019. FINDINGS: Left-sided craniotomy is again noted with a small amount of encephalomalacia within the lef t temporal lobe deep to the craniotomy site. No hematoma or midline shift. The visualized intracrania l right internal carotid artery is diffusely small in caliber measuring between 1 and 3 mm in diamete r. This remains unchanged and is consistent with the patient's known proximal internal carotid artery stenosis/occlusion. The distal right vertebral artery may severely hypoplastic and does not appear t o reach the basilar artery. Distal left vertebral artery and basilar artery are normal in caliber. No significant stenosis, occlusion, aneurysm within the bilateral ACAs, MCAs, or factory manager. Chronic opacific ation of the left mastoid air cells with soft tissue in the epitympanic recess. Focal erosion at the epitympanic roof remains unchanged. IMPRESSION: 1. No significant change in the severe diffuse narrowing of the visualized intracranial right interna l carotid artery. 2. Otherwise, no significant stenosis, occlusion, or aneurysm within the bilateral ACAs, MCAs, factory manager. 3. A hypoplastic distal right vertebral artery is again noted. 4. Chronic opacification of the left mastoid air cells with focal erosion of the epitympanic roof tate sing the possibility of a cholesteatoma. This may account for the left-sided poststernotomy changes. This is also unchanged. ACT 112: Negative or not required by law. Electronically signed by: Micheal Lux M.D. 09/30/2019 7:25 AM
--- NOTE | 2019-09-30 07:31 | Magnetic Resonance Report ---
Brain MRI WITHOUT CONTRAST HISTORY: Facial numbness. Headache. TECHNIQUE: Multiplanar multisequence MRI of the brain was performed without the use of contrast. COMPARISON STUDY: Head CT 09/29/2019. Brain MRI 05/21/2019. FINDINGS: Chronic opacification of left mastoid air cells. Left-sided craniotomy is again noted with a small amount of insufflation within the adjacent left temporal lobe. This remains unchanged. There are few punctate lacunar infarcts within the right cerebellar hemisphere. Small amount of encephaloma lacia within the right posterior parietal lobe consistent with an old infarct. No areas of restricted diffusion to suggest an acute infarct. The ventricles are normal in size. There are few scattered pu nctate foci of T2 hyperintensity seen within the white matter of the supratentorial brain. These are nonspecific but favor mild microvascular ischemic change. There is no mass, hematoma, midline shift. Trace right mastoid effusion. The paranasal sinuses are clear. IMPRESSION: 1. Old infarcts and postoperative changes as described above. 2. No acute intracranial abnormality. 3. Chronic opacification of the left mastoid air cells is again noted. ACT 112: Negative or not required by law. Electronically signed by: Micheal Lux M.D. 09/30/2019 7:29 AM
[2019-09-30] MEDS ORDERED: CLOPIDOGREL BISULFATE 75 MG TAB PO SCH (09:00)
[2019-09-30] MEDS ORDERED: CETIRIZINE HCL 10 MG TABLET PO SCH (09:00)
[2019-09-30] MEDS ORDERED: ASPIRIN 81 MG ECTAB PO SCH (09:00)
[2019-09-30] MEDS ORDERED: ATORVASTATIN 40 MG TAB PO SCH (09:00)
[2019-09-30 09:26] LABS: Estimated Average Glucose 111 mg/dl; Hemoglobin A1C 5.5 % (4.5-5.6)
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
--- NOTE | 2019-09-30 11:11 | Medical Student Progress Note ---
Date of Service September 30, 2019 Assessment & Plan (1) TIA (transient ischemic attack): - Patients varinder oral numbness, weakness, GARCIA and vision changes have resolved. -Brain MRI shows no acute changes that would be indicative of a CVA. -Patient will f/u with neurology - continue losartan 100 mg QAM, atorvastatin 80 mg QAM, Aspirin 81 mg QAM, clopidogrel 75 mg QAM - Will restart HCTZ 12.5 QAM (2) Numbness: - perioral numbness has resolved - f/u with neurology (3) Right internal carotid occlusion: - PT was found to not be a good candidate for carotid endarterectomy -Continue losartan 100 mg QAM, atorvastatin 80 mg QAM, Aspirin 81 mg QAM, clopidogrel 75 mg QAM (4) Hypertension: - Continue losartan 100 mg QAM, atorvastatin 80 mg QAM, Aspirin 81 mg QAM, clopidogrel 75 mg QAM - Will restart HCTZ 12.5 QAM since her TIA symptoms have resolved and MRI shows no evidence of acute stroke (5) Tobacco abuse: - encouraged patient to ask PC about smoking cessation program as this her extensive pack year hx is most likely contributing to her CVA hx. -Encourage patient to get annual low dose CT for lung cancer screen Admission and Anticipated Discharge Date Admission Date: September 29, 2019 Supervising Attestation Med student note Subjective 59 y/o female with a hx of CVA, HTN, right ICA stenosis, peripheral vascular disease and current tobacco abuse with 50 plus pack years presented to the ED yesterday after experiencing rapid onset GARCIA, dizziness, perioral numbness, numbness and weakness in her left leg and arm. This episode began after laughing with her granddaughter. She also experienced a change in her vision which he describes as everything turning medellin. Her GARCIA had a rapid onset and was sharp in intensity at onset. This GARCIA subsided to a dull pain after a few hours. She was then brought to the ED by her daughter over concern of having another CVA. After a few hours in the ED her perioral numbness and weakness in her left arm and leg improved. She did not develop any expressive or receptive asphasia, dysphagia, confusion or facial droop during this episode. Her history is notable for a right side multi focal hemispheric ischemic stroke in the context of a complete occlusion of the right internal carotid artery. This CVA occurred last May. She was evaluated by neurologist Dr Stark and vascular surgeon Dr Dale and was not found to be a good surgical candidate for endarterectomy. She was medically managed with the optimal medical regimen and treated with dual antiplatelet therapy and high dose atorvastatin. She has had some residual left arm and left leg weakness and numbness post CVA. Today she is on day one of her hospital admission. She does not have any perioral numbness, weakness or GARCIA. She has been ambulating well and has been getting up to go to the bathroom. She does not endorse any dizziness, light headedness, dysphagia, asphasia, facial weakness, SOB, chest pain, fever or chills or difficulty with balance. Review of Systems Review of Systems: All systems reviewed & are unremarkable except as noted in HPI & below Physical Exam Eyes: PERRL, conjunctivae normal, anicteric sclerae Respiratory: no cough Auscultation: + bronchial breath sounds (BL lowe lungs); no crackles, no rales and no wheezes Cardiovascular: RRR, no murmur, no edema Heart Sounds: normal S1 and normal S2; no click and no cardiac rub Vessels: no JVD Neurologic: patellar DTR's 2+ bilat, sensation intact and PERRL, EOMI, accommodation nl, no face palsy, no dysarthria CN's II-XI intact bilaterally Motor/Sensory: no pronator drift and no asterixis Coordination: normal rapid alternating movements Results & Data ([facility]) Vital Signs (Past 12 Hours) Vital Signs Temp Pulse Pulse Resp BP BP Pulse Ox 09/30/19 07:25 36.6 C 81 18 108/70 96 09/30/19 05:07 94 H 09/30/19 03:00 36.6 C 85 20 102/69 93 09/30/19 01:08 36.5 C 85 18 140/81 97 09/29/19 23:24 86 16 132/66 97
[2019-09-30] MEDS ORDERED: STROKE PATIENT DISCHARGE STA (14:52)
--- NOTE | 2019-09-30 15:14 | Pharmacy Report ---
Pharmacist Stroke Counseling - Date of Service September 30, 2019 - Scope: Pharmacy has been consulted to provide medication discharge counseling for this patient admitted with transient ischemic attack as per the Pharmacist Discharge Counseling for Stroke Patients Protocol. - Medications on Discharge: Home Medications Medication Instructions Recorded Confirmed albuterol sulfate 2.5 mg INHALATION .Q4-6HRS PRN 07/24/18 09/29/19 cetirizine [Zyrtec] 10 mg PO QAM 09/14/19 09/29/19 clopidogrel [Plavix] 75 mg PO QAM 09/14/19 09/29/19 losartan 100 mg PO QAM 09/29/19 09/29/19 pantoprazole 40 mg PO QPM 09/29/19 09/29/19 New Rx's Medication Instructions Recorded aspirin 81 mg PO QAM 30 Days #30 tab 05/22/19 atorvastatin 80 mg PO QAM 30 Days #60 tab 05/22/19 hydrochlorothiazide 12.5 mg tablet 12.5 mg PO QAM #30 tab 08/13/19 ondansetron 4 mg disintegrating 4 mg TRANSLINGUAL TID PRN #15 tab 08/13/19 tablet albuterol sulfate 90 mcg/actuation 1 - 2 puff INHALATION Q4H PRN #8.5 09/22/19 aerosol inhaler gm - Action: The above medications, specifically ones for stroke treatment/prophylaxis, have been reviewed in detail with the patient prior to discharge. This includes indication, common adverse reactions, drug interactions, and medication administration. Medication counseling has been employed using the teach-back method to ensure understanding. - Outcome: The patient has demonstrated understanding of the medications. Additional comments: Spoke over the phone with patient today- she was very pleasant and receptive to counseling. Reviewed medications to prevent stroke including Aspirin, Atorvastatin, Plavix. 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 I asked if she misses any of her doses. She said she does not. Discussed why they are being used and common side effects in great detail. Reviewed how to use the medications, what to do if doses are missed, common drug interactions, common side effects, what to watch out for while using the medications. I asked if she gets myalgias to Atorvastatin and she said when she wakes up in the morning her back is stiff and hurts but it gets better during the course of the day. Asked her to monitor this and report to PCP if symptoms get worse. Pt verbalized understanding. Briefly discussed smoking cessation to avoid TIA/ stroke in the future. She replied that she is working on this. Pt asked about her HCTZ med not being refilled by [facility] in [place]. Encouraged her to call again and speak to a pharmacist there about it. Thank you for allowing pharmacy to be involved in the care of this patient. Please call [phone] with any additional questions
[2019-09-30] MEDS ORDERED: PANTOprazole 40 MG TAB PO SCH (21:00)
--- NOTE | 2019-10-01 02:32 | Billing Data ---
Date of Service October 01, 2019 Coding Level of Care Code 98763 Initial Inpt Care Lvl 3
--- NOTE | 2019-10-01 06:07 | Electrocardiogram Report ---
Test Reason : Blood Pressure : / mmHG Vent. Rate : 088 BPM Atrial Rate : 088 BPM P-R Int : 168 ms QRS Dur : 072 ms QT Int : 356 ms P-R-T Axes : 051 065 061 degrees QTc Int : 430 ms Normal sinus rhythm Low voltage QRS Septal infarct , age undetermined Abnormal ECG When compared with ECG of 21-MAY-2019 04:14, Septal infarct is now Present Confirmed by Richard Swann ([id number]) on 10/01/2019 6:07:23 AM Referred By: REFERRED SELF Confirmed By:Richard Swann
--- NOTE | 2019-10-07 06:36 | Discharge Summary ---
Date of Service September 30, 2019 Admission HPI Per Admitting Provider Brie is a 59-year-old female with a past medical history of critical right carotid stenosis, hypertension, tobacco abuse, peripheral vascular disease, asthma with COPD, and past CVA who presented with sudden onset blurry vision, left-sided weakness, and perioral numbness concerning for stroke. Let us reports her symptoms began suddenly at around 8 PM, she was sitting on a swing with her daughter and was laughing when she suddenly developed perioral and facial numbness, blurry vision, and left-sided weakness. Her daughter noticed a change immediately, and called 911. And had the patient transported to the emergency department. By arrival to the emergency department patient reported her symptoms were improving, but she continued to have some lip numbness. She has a history of critical stenosis of the right carotid which is pending vascular intervention at [facility] but which was deferred due to COVID delays. She denies lightheadedness, dizziness, syncope, presyncope, chest pain, chest pressure, difficulty breathing, and shortness of breath. At time of assessment by hospitalist team she reports her symptoms have completely resolved and she feels that she is at her normal baseline level of health with no residual deficit. She denies nausea/vomiting. She is a daily active smoker, tobacco counseling provided she is aware of its effect on her stroke risk. Her case was discussed with [facility] neurology on arrival, recommended no TPA was indicated and to observe overnight with fluids, continue aspirin/Plavix, and have a follow-up MRI. Antihypertensives should be held with permissive hypertension allowed. Medical history: Reviewed Surgical history: Reviewed Medications: Reviewed. Last took morning of admission Allergies: Reviewed. Allergic to penicillins, hives. CODE STATUS: Full code, discussed with patient Principal Diagnosis TIA Discharge Exam General: A&Ox3. NAD. Cooperative. HEENT: Atraumatic, normocephalic. Pulm: CTAB A&P. -wheezes, -rales, -rhonchi. Symmetrical chest rise. No increase work of breathing. No respiratory distress. Cardiac: RRR, -mrg. Radial pulses intact and symmetrical. No carotid bruits appreciated on auscultation. Abdominal: Nontender, nondistended, soft. BS present. CN II: Visual pete are full to confrontation. Pupils are equal and react to light and accomidation. Visual acuity grossly intact. CN III, IV, : At primary gaze, there is no eye deviation. EoM intact without nystagmus. No visual field cuts. CN V: Facial sensation is intact to soft touch in all 3 divisions bilaterally. CN VII: No facial asymmetry, full strength to eyebrow raise, smile, eye close, and cheek puff. CN VII: Hearing is grossly intact. CN IX, X: Palate elevates symmetrically. Phonation is normal without dysarthria. CN XI: Head turning and shoulder shrug are intact CN XII: Tongue protrudes midline. Reflexes: Patellar, Achilles, Brachial DTR 2+ Bilaterally Sensory: Light touch, pinprick intact in upper and low extremities without deficit or asymmetry. Strength: RUE: Shoulder flexion/extension/internal rotation/external rotation, elbow flexion/extension, finger flexion/extension, gut cleaner strength, interosseous 5/5 LUE: Shoulder flexion/extension/internal rotation/external rotation, elbow flexion/extension, finger flexion/extension, gut cleaner strength, interosseous 5/5 RLE: Hip flexion, knee flexion/extension, ankle plantar flexion/dorsiflexion 5/5 LLE: Hip flexion, knee flexion/extension, ankle plantar flexion/dorsiflexion 5/5 Coordination: Rapid alternating movements and fine finger movements are intact. There is no dysmetria on [id number] and [id number]. Discharge Data Allergies Allergy/AdvReac Type Severity Reaction Status Date / Time Penicillins Allergy Intermediate Hives Verified 10/06/19 09:31 propoxyphene Allergy Intermediate Hives Verified 10/06/19 09:31 Consultations 09/29/19 23:08 ED Decision to Admit Stat 09/30/19 00:46 Consult Case Management - Discharge Planning Routine 09/30/19 08:40 Consult Neurology Routine Ordered Studies 09/29/19 20:47 CT angio head w con Urgent CT angio neck with con Urgent CT head/brain wo con Stat 09/30/19 00:02 MR brain wo con Urgent Hospital Course (1) TIA (transient ischemic attack): Appreciate input from Neuro. Sympmtoms have subsided. Probable TIA characterized by sudden onset perioral numbness, bilateral vision dimming down, and dizziness. The episode occurred while laughing and could be related to vascular steal or hypoperfusion in the context of right internal carotid artery occlusion with distal reconstitution and right vertebral stenosis. Reported symptoms suggestive of a posterior circulation localization and had a presyncopal quality. Patient's MRI was negative for acute stroke. I would recommend that she continue with dual antiplatelet therapy and high-dose atorvastatin. She will need to continue to work on smoking cessation. (2) Right internal carotid occlusion: Occlusion at the origin of the right internal carotid artery with collateral reconstitution, 2 cm distal to the bifurcation. If this vessel is indeed occluded then stenting would not typically be performed. The patient is clinically stable and an outpatient follow-up with her neurovascular specialist at [facility] [place], Dr. Elizabeth Oscar would be appropriate. (2) Numbness: (3) Right internal carotid occlusion: (4) Hypertension: (5) Tobacco abuse: Total Time Total Time Spent Total Time Spent (In Minutes): 32 Total Time Includes: Examination of the Patient, Discharge Planning and Medication Reconciliation Discharge Plan Discharge Items Patient Disposition: Home - Self-Care Reason For Visit: TIA Discharge Diagnosis: TIA Activity: Resume your previous activity Non-emergency contact: Primary Care Provider Call non-emergency contact if: you have any medication questions Follow-up/Referrals: Ady Mix, [Primary Care Provider] - 10/06/19 9:20 am (If you need to change this appointment, please call [phone].) Diet: Heart Healthy Addtl Attending Provider Instructions: Risk Factors for Stroke: You can reduce your chances of stroke by working with your medical provider to adopt a healthy lifestyle. Some specific ways to lower your chance of stroke are: * If you are a smoker, now is the time to stop smoking cigarettes * If you are diabetic, improve the control of your blood sugars * Avoid excessive amounts of alcohol * Control high blood pressure * Lose weight if you are overweight * Be sure to lead an active lifestyle * Eat a healthy diet low in salt, cholesterol and fat You should know about other risk factors for stroke that you are unable to control. These include: * Age 55 years or older * Male gender * Certain racial groups: , or / * Family History of Stroke, Mini stroke or Heart Attack * Sickle Cell Disease Follow Up: It is important for you to keep your follow up appointments with your medical provider. Who to Call and When: Medical Emergencies: Call 911 immediately if you experience any of the following warning signs and symptoms of Stroke: * Sudden numbness or weakness of the face, arm or leg, especially on one side of the body * Sudden confusion, trouble speaking or understanding * Sudden trouble seeing in one or both eyes * Sudden trouble walking, dizziness, loss of balance or coordination * Sudden severe headache with no cause Do not delay calling 911 if you experience any warning signs or symptoms of a stroke. Delay in seeking medical attention may affect what treatments can be given to you. . MRI was negative for acute stroke. I would recommend that you continue with dual antiplatelet therapy: aspirin and plavix and high-dose atorvastatin. You will need to continue to work on smoking cessation. Outpatient follow-up with her neurovascular specialist at [facility] [place], Dr. Elizabeth Oscar would be appropriate. Pending Studies at Discharge: No Stand-Alone Forms: Medications to Prevent Stroke, My [facility], Smoking Cessation Medications and DC Order Prescriptions: Continued hydrochlorothiazide 12.5 mg tablet 12.5 mg PO QAM Qty: 30 RF: 5 ondansetron 4 mg tablet,disintegrating 4 mg translingual TID PRN (Reason: Nausea) Qty: 15 RF: 2 albuterol sulfate [Ventolin HFA] 90 mcg/actuation HFA aerosol inhaler 1 - 2 puff inhalation Q4H PRN (Reason: Shortness Of Breath Or Wheezing) Qty: 8.5 RF: 0 albuterol sulfate 2.5 mg /3 mL (0.083 %) solution for nebulization 2.5 mg inhalation .Q4-6HRS PRN (Reason: Shortness Of Breath Or Wheezing) RF: 0 atorvastatin 40 mg Tablet 80 mg PO QAM 30 Days Qty: 60 RF: 3 aspirin 81 mg Tablet,Delayed Release (Dr/Ec) 81 mg PO QAM 30 Days Qty: 30 RF: 3 cetirizine [Zyrtec] 10 mg tablet 10 mg PO QAM RF: 0 clopidogrel [Plavix] 75 mg tablet 75 mg PO QAM RF: 0 pantoprazole 40 mg tablet,delayed release (DR/EC) 40 mg PO QPM RF: 0 losartan 100 mg tablet 100 mg PO QAM RF: 0 No Action nicotine [Nicoderm CQ] 7 mg/24 hr patch 24 hour 1 patch transdermal Q24H Qty: 14 RF: 0 Discharge Orders: Discharge Order (Routine); Ordered 09/30/19 Ordered By: Anjel Kessler Admission Data Admit Date/Time: 09/29/19 23:25 Attending Provider: Anjel Kessler Admit Provider: Yuval Beckham Primary Care Provider: Ady Mix Other Providers: Agustín Galvan ; Zane Lorenzana Other Interventions: Discharge Summary Assessment (RN) Last Done: 09/30/19 15:45 Coding Level of Care Code 68758 OBS Care - Discharge Diagnoses TIA (transient ischemic attack) G45.9 Numbness R20.0 Right internal carotid occlusion I65.21 Hypertension I10 Tobacco abuse Z72.0
== END 2019-09-30 16:57 | disposition home or self-care (01) ==
LOC: 2N 20:32 → ED 20:32 → SUATTDRO 23:25 → 2N 23:53